=== PATIENT | female | born 1940 | race Caucasian/White ===

== ENCOUNTER 2016-09-03 13:02 | Inpatient (IN) | payer MEDICARE ==
[~2016-09-03] VITALS: Ht 157.5 cm; Wt 51.2 kg
[~2016-09-03 13:02] MED LIST: ALBUAER3 INH; AMLO10 PO; AMLO5 PO; BENT20TA PO; CEPH-460 PO; FLUT1INH7 INH; HYDR50TA15 PO; LEVO.125 PO; LORA-392 PO; METO10TA PO; MIRA33504 PO; OXYB5TAB10 PO; REST15CA PO
[2016-09-05] MEDS ORDERED: ceFAZolin 2 GM PREMIX 50 ML IV SCH (11:45)
[2016-09-05] MEDS ORDERED: INSULIN HUMAN REGULAR 1,000 UNITS/10 ML VIAL SQ PRN (11:45)
[2016-09-05] MEDS ORDERED: METOPROLOL TARTRATE 25 MG TAB PO PRN (11:45)
[2016-09-05] MEDS ORDERED: COLA100C3 PO (11:54)
[2016-09-05] MEDS ORDERED: LACTATED RINGER'S 1000 ML IV SCH (12:00)
[2016-09-05] MEDS ORDERED: METRONIDAZOLE 500 MG/100 ML IV ONE (12:00)
[2016-09-05] MEDS ORDERED: ePHEDrine/NS 25 MG/5 ML SYR IV ONE (12:00)
[2016-09-05] MEDS ORDERED: ONDANSETRON HCL 4 MG/2 ML VIAL IV PUSH ONE (12:00)
[2016-09-05] MEDS ORDERED: LACTATED RINGER'S 1000 ML INJ 1,000 ML IV ONE (12:00)
[2016-09-05] MEDS ORDERED: NORMOSOL R INJ 2,000 ML IV ONE (12:00)
[2016-09-05] MEDS ORDERED: HEPARIN SODIUM - SQ 10,000 UNITS/ML VIAL SQ SCH (12:00)
[2016-09-05] MEDS ORDERED: DEXT 5%-NACL 0.9% 1000 ML INJ 1,000 ML IV SCH (12:00)
[2016-09-05] MEDS ORDERED: ceFAZolin 2 GM/50 ML BAG IV ONE (12:00)
[2016-09-05] MEDS ORDERED: SODIUM CHLORID 0.9% 500 ML IV SCH (12:00)
[2016-09-05] MEDS ORDERED: PROPOFOL 200 MG/20 ML AMP IV ONE (12:00)
[2016-09-05] MEDS ORDERED: METRONIDAZOLE 500 MG/100 ML ISONTONIC SOLN IV SCH (12:00)
[2016-09-05 12:04] VITALS: BP 139/68; PULSE 76; RESP 16; TEMP 97.6; O2SAT 97
[2016-09-05] MEDS ORDERED: APREPITANT 40 MG CAP ONE (17:07)
[2016-09-05] MEDS ORDERED: FAMOTIDINE 20 MG/2 ML VIAL ONE (17:08)
[2016-09-05] MEDS ORDERED: ACETAMINOPHEN 1000 MG/100 ML VIAL IV ONE (17:21)
[2016-09-05] MEDS ORDERED: SUGAMMADEX SODIUM 200 MG/2 ML VIAL IV PUSH ONE ×2 (17:21)
[2016-09-05] MEDS ORDERED: ARTIFICIAL TEARS OPTH OINT 3.5 APPLIC/3.5 GM TUBO ONE (17:22)
--- NOTE | 2016-09-05 19:25 | PD.OP ---
Operative Report Date of Surgery: Sep 05, 2016 Preoperative Diagnosis: History of colon perforation Postoperative Diagnosis: Same Procedure: Cystoscopy and bilateral ureteral catheter placement Anesthesia: GILA Surgeon: Aurelio Ortiz Well Drill Operator Helper Cable Tool(s): None Resident Surgeon: None Operation and Findings: Request for made by Dr. Marti for placement of bilateral ureteral catheters during robotic colectomy. Patient is brought to the operating room and and identified by myself as Nancy Ny. She was placed in the dorsal lithotomy position, prepped and draped in usual sterile fashion, received preprocedure antibiotics and general endotracheal tube anesthesia was administered. 22 Spanish cystoscope was inserted in the bladder hamm cystoscopy did not reveal any abnormalities. Left ureteral orifice was visualized and a 5 Spanish open catheter was passed up the left ureter part of the way. Some resistance was encountered and an 0.35 sensor wire was passed through the open ended catheter and the catheter slid up easily over the wire. The right ureteral orifice was then identified and a 5 Spanish opening catheter slid up easily on the right side. 16 Mauricio was then inserted the bladder without difficulty and the catheters were secured to the Mauricio. She tolerated the procedure well. Aurelio Ortiz DO Sep 05, 2016 19:25
[2016-09-05] MEDS ORDERED: fentaNYL CITRATE 250 MCG/5 ML AMP ONE (21:03)
[2016-09-05] MEDS ORDERED: MIDAZOLAM HCL 2 MG/2 ML VIAL ONE (21:03)
[2016-09-06] VITALS (11 sets, daily range): BP systolic 122–147; BP diastolic 58–64; PULSE 73–90; RESP 11–30; TEMP 97.3–98.3; O2SAT 95–100
[2016-09-06] MEDS ORDERED: POTASSIUM CHLOR 40 MEQ PREMIX 100 ML IV PRN (00:30)
[2016-09-06] MEDS ORDERED: ACETAMINOPHEN 325 MG TAB PO PRN (00:30)
[2016-09-06] MEDS ORDERED: NALOXONE HCL 0.4 MG/ML AMP IV PRN (00:30)
[2016-09-06] MEDS ORDERED: ENALAPRILAT 2.5 MG/2 ML VIAL IV PRN (00:30)
[2016-09-06] MEDS ORDERED: Post-op Orders (for Pharmacy) MISC XX ONE (00:30)
[2016-09-06] MEDS: PCA - TOTAL MG MORPHINE DELIVERED PER SHIFT SCH ×4 (00:30→21:34)
[2016-09-06] MEDS ORDERED: BENZOCAINE 6 MG/MENTHOL 10 MG LOZENGE SUCK-ON PRN (00:30)
[2016-09-06] MEDS ORDERED: ACETAMINOPHEN/HYDROcodone 325 MG/5 MG TAB PO PRN (00:30)
[2016-09-06] MEDS ORDERED: ALBUTEROL SULFATE 90 MCG/ACT HFA 8 GM INHALER INH PRN (00:45)
[2016-09-06] MEDS ORDERED: *morphine SULFATE 8 MG/ML PERIprocedure ONLY ONE (00:48)
[2016-09-06] MEDS ORDERED: fentaNYL CITRATE 250 MCG/5 ML AMP ONE (00:52)
[2016-09-06] MEDS ORDERED: metroNIDAZOLE 500 MG INJ 100 ML IV SCH (01:00)
[2016-09-06 01:03] LABS: AUTOMATED NEUTROPHIL # 12.9 TH/MM3 (1.8-7.7); BASOPHIL % 0.4 % (0.0-2.0); EOSINOPHIL % 0.2 % (0.0-4.0); HEMATOCRIT 33.2 % (35.0-46.0); HEMO FLAGS DIFF FINAL; LYMPH % 2.7 % (9.0-44.0); LYMPHOCYTE # 0.4 TH/MM3 (1.0-4.8); MEAN CELL VOLUME 87.2 FL (80.0-100.0); MEAN CORPUSCULAR HEMOGLOBIN 28.8 PG (27.0-34.0); MONO % 4.1 % (0.0-8.0); NEUT % 92.6 % (16.0-70.0); PLATELET COUNT 263 TH/MM3 (150-450); RED BLOOD COUNT 3.81 MIL/MM3 (4.00-5.30); RED CELL DISTRIBUTION WIDTH 13.5 % (11.6-17.2); WHITE BLOOD COUNT 13.9 TH/MM3 (4.0-11.0)
[2016-09-06 01:18] LABS: BICARBONATE 23.7 MEQ/L (21.0-32.0)
[2016-09-06] MEDS: D5-NS + KCL 20 MEQ INJ 1,000 ML IV SCH ×4 (01:30→21:32)
[2016-09-06] MEDS: MORPHINE SULFATE 30 MG/30 ML PCA IV SCH (01:50)
[2016-09-06] MEDS: ONDANSETRON HCL 4 MG/2 ML VIAL IV PRN ×2 (02:20→08:44)
[2016-09-06] MEDS: metroNIDAZOLE 500 MG INJ 100 ML IV SCH ×3 (02:23→16:57)
[2016-09-06] MEDS: KETOROLAC TROMETHAMINE 30 MG/ML (IVP) VIAL IVP PRN (03:25)
[2016-09-06] MEDS: POTASSIUM CHLOR 20 MEQ PREMIX 100 ML IV PRN (03:25)
[2016-09-06] MEDS: SODIUM CHLORIDE 0.9% FLUSH 5 ML FLUSH IVF SCH ×2 (08:23→21:33)
[2016-09-06] MEDS: PANTOPRAZOLE SODIUM 40 MG VIAL IVP SCH (08:23)
[2016-09-06] MEDS: BREO ELLIPTA PO SCH (08:58)
[2016-09-06] MEDS: LEVOTHYROXINE SODIUM 125 MCG TAB PO SCH (09:00)
[2016-09-06] MEDS: POTASSIUM CHLOR 20 MEQ PREMIX 100 ML IV SCH ×3 (10:00→11:48)
[2016-09-06] MEDS: PROCHLORPERAZINE INJ 10 MG/2 ML VIAL IVS PRN ×2 (10:51→21:41)
--- NOTE | 2016-09-06 19:25 | EKG ---
Date Performed: 09/06/2016 Time Performed: 00:47:02 PTAGE: 76 years EKG: SINUS TACHYCARDIA ST DEVIATION AND MODERATE T-WAVE ABNORMALITY, CONSIDER ANTERIOR ISCHEMIA Since previous tracing, no significant change noted ABNORMAL ECG PREVIOUS TRACING : 06/06/2016 11.58 DOCTOR: Magnus Tan Interpretating Date/Time 09/06/2016 19:24:11
[2016-09-06] MEDS: HEPARIN SODIUM - SQ 10,000 UNITS/ML VIAL SQ SCH (21:33)
[2016-09-06] MEDS: amLODIPine BESYLATE 5 MG TAB PO SCH (21:34)
[2016-09-06] MEDS: ACETAMINOPHEN/HYDROcodone 325 MG/5 MG TAB PO PRN (21:35)
[2016-09-06] MEDS: diphenhydrAMINE HCL 50 MG/ML VIAL IV PRN (21:41)
--- NOTE | 2016-09-06 23:31 | RADRPT ---
EXAM DATE/TIME: 09/06/2016 21:07 [facility] COMPARISON: No previous studies available for comparison. INDICATIONS : Left leg pain. MEDICAL HISTORY : Hypercholesterolemia. Hypertension. Carcinoma, breast. Hashimotos thyroid disease. Transient ische clarke attack. Asthma. Hammer toe. Buinion. Enlarged right ovary. Anxiety. Anemia. Hernia. SURGICAL HISTORY : Left breast lumpectomy. Colostomy. Bilateral foot surgery. ENCOUNTER: Initial ACUITY: 1 day PAIN SCORE: 7/10 LOCATION: Left leg. TECHNIQUE: Venous ultrasound of the leg was performed from the inguinal ligament to the proximal calf. Real-tatiana e, color Doppler and spectral tracing, compression and augmentation techniques were used. FINDINGS: There is normal compressibility of the deep venous system from the inguinal region to the proximal ca lf. No echogenic clot is seen in the lumen of the common femoral, femoral, popliteal, and posterior tibial veins. There is a normal response of the venous system to proximal and distal augmentation an d respiration. CONCLUSION: Normal examination. Vasyl Taylor MD on September 06, 2016 at 23:29 Board Certified Radiologist. This report was verified electronically.
[2016-09-07] VITALS: BP 99/42; PULSE 75; RESP 18; TEMP 98.1; O2SAT 94
[2016-09-07] MEDS: ACETAMINOPHEN/HYDROcodone 325 MG/5 MG TAB PO PRN (04:17)
[2016-09-07] MEDS: diphenhydrAMINE HCL 50 MG/ML VIAL IV PRN ×3 (04:24→18:38)
[2016-09-07] MEDS: PCA - TOTAL MG MORPHINE DELIVERED PER SHIFT SCH ×3 (04:25→21:54)
[2016-09-07 07:07] LABS: AUTOMATED NEUTROPHIL # 4.7 TH/MM3 (1.8-7.7); BASOPHIL % 0.8 % (0.0-2.0); EOSINOPHIL # 0.3 TH/MM3 (0-0.4); EOSINOPHIL % 4.2 % (0.0-4.0); HEMATOCRIT 29.9 % (35.0-46.0); HEMO FLAGS DIFF FINAL; LYMPH % 9.7 % (9.0-44.0); LYMPHOCYTE # 0.6 TH/MM3 (1.0-4.8); MEAN CORPUSCULAR HEMOGLOBIN 29.3 PG (27.0-34.0); MEAN CORPUSCULAR HGB CONC 32.9 % (32.0-36.0); MONO % 7.5 % (0.0-8.0); NEUT % 77.8 % (16.0-70.0); PLATELET COUNT 154 TH/MM3 (150-450); RED BLOOD COUNT 3.36 MIL/MM3 (4.00-5.30); RED CELL DISTRIBUTION WIDTH 13.8 % (11.6-17.2); WHITE BLOOD COUNT 6.1 TH/MM3 (4.0-11.0)
[2016-09-07 07:35] LABS: BICARBONATE 26.6 MEQ/L (21.0-32.0); POTASSIUM 3.3 MEQ/L (3.5-5.1)
[2016-09-07] MEDS: BREO ELLIPTA PO SCH (07:42)
[2016-09-07] MEDS: HEPARIN SODIUM - SQ 10,000 UNITS/ML VIAL SQ SCH ×2 (07:43→20:00)
[2016-09-07] MEDS: LEVOTHYROXINE SODIUM 125 MCG TAB PO SCH (07:43)
[2016-09-07] MEDS: SODIUM CHLORIDE 0.9% FLUSH 5 ML FLUSH IVF SCH ×2 (07:55→21:00)
[2016-09-07] MEDS: PANTOPRAZOLE SODIUM 40 MG VIAL IVP SCH (07:56)
[2016-09-07 07:57] LABS: CALCIUM-PROTEIN CORRECTED 8.8 MG/DL (8.5-10.1)
[2016-09-07 08:00] VITALS: BP 120/58; PULSE 75; RESP 16; TEMP 97.5; O2SAT 95
[2016-09-07] MEDS ORDERED: SODIUM CHLORID 0.9% 500 ML INJ 500 ML IV ONE (10:30)
[2016-09-07] MEDS ORDERED: POTASSIUM CHLOR 40 MEQ PREMIX 100 ML IV ONE (10:30)
[2016-09-07] MEDS: POTASSIUM CHLOR 20 MEQ PREMIX 100 ML IV SCH ×2 (11:00→11:06)
--- NOTE | 2016-09-07 11:12 | RADRPT ---
EXAM DATE/TIME: 09/07/2016 10:46 [facility] COMPARISON: ABDOMEN FLAT & UPRIGHT, May 30, 2016, 11:42. INDICATIONS : Post op ileus. MEDICAL HISTORY : Hypercholesterolemia. Hypertension. Carcinoma, breast. Hashimotos thyroiddisease. Transient ischemic attack. Asthma. Hammer toe. Buinion. Enlarged right ovary. SURGICAL HISTORY : Left breast lumectomy. Colostomy. ENCOUNTER: Subsequent ACUITY: 2 days PAIN SCORE: 5/10 LOCATION: abdomen. FINDINGS: 4 supine views of the abdomen demonstrate diffuse mild gaseous distention of both the small bowel and colon. Air overlies the rectum. A bowel staple line overlies the inferior pelvis. There is trace reggie e air beneath the right hemidiaphragm. Air is present along the abdominal wall bilaterally in the sub cutaneous tissues. No organomegaly is identified and no acute osseous abnormality is seen. Lung bases are clear. CONCLUSION: 1. Mild diffuse gaseous distention of the small bowel and colon without a transition point appreciate d. Findings are suggestive of ileus. 2. Trace free air beneath the right hemidiaphragm and subcutaneous air along the abdominal wall bilat erally. If the patient is post recent surgery this is likely a normal finding. Vasyl Freitas MD on September 07, 2016 at 11:09 Board Certified Radiologist. This report was verified electronically.
[2016-09-07] MEDS: KETOROLAC TROMETHAMINE 30 MG/ML (IVP) VIAL IVP PRN ×2 (11:13→18:38)
[2016-09-07 12:00] VITALS: BP 148/70; PULSE 77; RESP 17; TEMP 98.4; O2SAT 97
[2016-09-07] MEDS: POTASSIUM CHLORIDE 25 MEQ EFFERVESCENT TAB PO SCH ×2 (13:18→15:20)
[2016-09-07] MEDS: FUROSEMIDE 40 MG/4 ML VIAL IV SCH (15:15)
[2016-09-07] MEDS: D5-NS + KCL 20 MEQ INJ 1,000 ML IV SCH ×2 (15:17→18:42)
[2016-09-07 16:00] VITALS: BP_SYST 160; BP_SYST 177; BP_DIAS 72; BP_DIAS 73; PULSE 76; RESP 17; TEMP 97.9; O2SAT 96
--- NOTE | 2016-09-07 17:47 | MP ---
cc: BRENDAN BURROUGHS M.D. DATE OF SURGERY: 09/05/2016. PREOPERATIVE DIAGNOSIS: 1. Previous stercoral ulcer with perforation. 2. Adnexal mass. POSTOPERATIVE DIAGNOSIS: 1. Previous stercoral ulcer with perforation. 2. Adnexal mass. 3. Adhesions. SURGEON: Brendan Burroughs M.D. GRAIN LOADER: Boyd. OPERATIVE PROCEDURE PERFORMED: Figueroa Nix procedures. 1. Robotic / laparoscopic extensive lysis of adhesions. 2. Robotic resection with re-anastomosis of Stuart's pouch. 3. Robotic appendectomy 4. Robotic bilateral salpingo-oophorectomy, (please see Dr. Pierson' notes for details). ESTIMATED BLOOD LOSS: 50 cc. OPERATIVE INDICATIONS: The patient is a 76-year-old female who is several months out from an emergency resection with colostomy and Stuart's pouch for a perforated stercoral ulcer. At the time of that surgery, she was noted to have an adnexal mass, which was addressed during this surgery. OPERATIVE FINDINGS: A combination of both filmy and significant adhesions throughout the peritoneal cavity of both small bowel and colon. Otherwise the bowel appeared healthy. The right adnexa was enlarged and firm. The left adnexa appeared virtually normal. Please see Dr. Pierson' as notes for details. DESCRIPTION OF THE PROCEDURE IN DETAIL: The patient was brought to the operating and placed in the supine position. After induction of general anesthesia, the patient was placed in Edgar stirrups and all bony prominences were carefully padded. The skin of the anterior abdominal wall, as well as the perineal area, was then prepped and draped in the usual sterile fashion. Dr. Ortiz then came in and performed cystoscopy with placement of bilateral ureteral catheters, please see his operative note for details. A site was then chosen for the initial trocar. I decided to try just under the right costal margin with our assist port, due to my worries about significant adhesions. A #5 trocar was attempted to be placed at this location but indeed I did get into adhesions and so did not insufflate the abdomen at this port. Another attempt was made to place a port in the right lower quadrant, a #5 port at the site of our #1 port, but again, we got into adhesions. At this point, I elected to proceed with taking down the stoma and taking down adhesions through the stoma site enough to get a port in. An incision was made circumferentially around the stoma sharply and, using electrocautery, dissection was carried down to the fascia circumferentially, noting a small parastomal hernia. The fascia was cleared of the bowel circumferentially and the bowel was gently grasped and pulled out of the stoma aperture. A TX-30 stapler was placed across the bowel at this level to prevent leakage during the remainder of the surgery, and the bowel was prolapsed back into the peritoneal cavity. The posterior fascia was palpably and gently swept free of adhesions to the length of my finger and the right lower quadrant port I could palpate and make sure that it was well within the abdominal cavity for CO2 insufflation. The posterior fascia at the stomal site was closed in a running fashion using #1 PDS, and the anterior fascia was closed in a running fashion using #1 PDS. An OpSite was placed across the wound and CO2 insufflation was begun through the right lower quadrant port. Eventually we were able to place the right lower quadrant port. We placed the camera port just above the umbilicus, with a 10/12. We replaced the #5 assist port that we had started in the right upper quadrant with a #[address] Jesi port for Dr. Pierson' needs and we placed the #2 port which was also an 8 da Jesi port in the left midclavicular line, in line with the umbilicus. At this point, we slowly and painstakingly dissected free dense and extensive adhesions from the peritoneal cavity, although some of them were fairly light and filmy, they were pretty much everywhere. Eventually we were able to free up the ovaries. Dr. Pierson then came in and performed a right oophorectomy and the specimen was sent for pathology. While the remainder of the case was performed, pathology came back suspicious for a metastatic breast cancer and he felt it was appropriate and removed the left ovary and tube as well. Attention was then turned to the rectum, which was grasped and dissection was continued posteriorly down to level of the mid rectum and up around laterally to the right and the left. Eventually we were able to peel the rectum off the posterior uterus and vagina until we had full mobility of the rectum. A sponge stick was then placed in the rectum. A site was chosen for division of the rectum, just at the junction between the middle third and proximal third. The superior hemorrhoidal vessels were then dissected free circumferentially and then divided with an [place] [employer] stapler. The mesentery at the level of the proposed rectal resection was divided using the harmonic scalpel and at that point, the 29 EEA stapler was advanced through the anus and up to the rectal stump. However, we had managed to staple it at an angle so there was quite a large dog ear. With this, we elected to dissect back along the dog ear to get a better staple line and then a second load of the [place] endostapler was advanced across the staple line. At the beginning of the case, we had noted that the appendix was adherent to the posterior peritoneum. During the dissection of the appendix away from the posterior peritoneum and the left ovary and tube, it had gotten quite beat up so I did plan to take out the appendix at this point. The mesentery of the appendix was divided using electrocautery and a reload of the [place] End[employer] stapler was placed across the cecum at the base of the appendix. This was closed, held for 30 seconds, fired and removed. The specimen was removed. Attention was then turned to the descending colon which was dissected free, and the stoma came down nicely to the pelvis without too much problem. We did not have to do a large amount of dissection but I did dissect some of the lateral peritoneal attachments. There was noted to be some small bowel that seemed to be somewhat adherent to the anterior surface of the descending colon but I elected to take care of that through the open incision. The robot was then undocked and the previous incision at the stoma site was then opened. The specimen was retrieved and sent for pathology. The proximal stapled end of the bowel was then grasped and pulled out through the incision and we were at that point able to gently dissect free the other loop of small bowel that had been adherent to the anterior surface of the descending colon. This allowed even greater length and the bowel came down very nicely into the pelvis without any tension. The bowel just proximal to the previous stoma was cleared of its mesentery using a combination of #0 Vicryl ties and electrocautery, and the pursestring stapling device was placed across the bowel at this level. The distal staple line was then amputated and the anvil from the 29 EEA stapler was placed into the cut end of bowel. The previously placed pursestring suture was then secured. The bowel was then prolapsed back into the peritoneal cavity. The posterior fascia at the stoma site was closed in a running fashion using #1 PDS and the anterior fascia was closed in a running fashion using #1 PDS. The wound was then occluded with a Tegaderm and CO2 insufflation was resumed. The laparoscope was placed back into the peritoneal cavity. The 29 EEA stapler was advanced through the anus and up to the rectal stump. The spike was advanced posterior to the staple line, slightly off to one side, but lay nicely without twisting or undue tension. The proximal bowel with the anvil in place was then brought down and the spike was then into the anvil, being careful that the bowel was not twisted. The stapler was then closed, held for a 30 seconds, fired, and removed. The anastomosis appeared pink and healthy circumferentially and both anastomotic rings appeared to be complete. A small amount of warm normal saline was placed in the pelvis and the proximal bowel was occluded with digital pressure. Air was insufflated into the rectum until gentle tension was noted on the anastomosis. No sign of any leakage was noted. The anastomosis lay in a nice orientation without undue tension and all dissection beds appeared without significant bleeding. The 10/12 trocar sites to the right lower quadrant and the umbilical area were then closed using the crossbow closure device and the #0 Vicryl suture. These were placed but not tied until the CO2 was removed from the peritoneal cavity. The CO2 was then removed and all trocars were removed. The #0 Vicryl sutures were secured. The wounds were copiously irrigated with warm normal saline. The skin at the stoma site was then closed in a running subcuticular fashion using 3-0 Vicryl and the wounds at the trocar sites were closed in interrupted subcuticular fashion using 3-0 Vicryl. Steri-Strips and sterile dressings were applied. The right ureteral stent was removed. All sponge, needle and instrument counts were correct and the patient was returned to the post anesthesia care in stable condition. MD ANTONIA Monge/MINDY /12:22 AM /5:22 PM [facility]
[2016-09-07 20:00] VITALS: BP 148/70; PULSE 80; RESP 20; TEMP 98.5; O2SAT 97
[2016-09-07] MEDS: amLODIPine BESYLATE 5 MG TAB PO SCH (21:00)
[2016-09-08] MEDS: D5-NS + KCL 20 MEQ INJ 1,000 ML IV SCH ×2 (00:57→08:55)
[2016-09-08] MEDS: KETOROLAC TROMETHAMINE 30 MG/ML (IVP) VIAL IVP PRN (00:58)
[2016-09-08] MEDS: diphenhydrAMINE HCL 50 MG/ML VIAL IV PRN ×2 (00:59→12:29)
[2016-09-08] MEDS: FUROSEMIDE 40 MG/4 ML VIAL IV SCH ×2 (02:34→13:36)
[2016-09-08 02:55] VITALS: BP 134/62; PULSE 84; RESP 18; TEMP 98.2; O2SAT 96
[2016-09-08] MEDS: PCA - TOTAL MG MORPHINE DELIVERED PER SHIFT SCH ×2 (03:46→20:44)
[2016-09-08] MEDS: MORPHINE SULFATE 30 MG/30 ML PCA IV SCH (03:53)
[2016-09-08 06:24] LABS: AUTOMATED NEUTROPHIL # 4.5 TH/MM3 (1.8-7.7); BASOPHIL % 0.4 % (0.0-2.0); EOSINOPHIL # 0.4 TH/MM3 (0-0.4); HEMATOCRIT 32.3 % (35.0-46.0); HEMO FLAGS DIFF FINAL; LYMPH % 11.5 % (9.0-44.0); LYMPHOCYTE # 0.7 TH/MM3 (1.0-4.8); MEAN CELL VOLUME 87.2 FL (80.0-100.0); MEAN CORPUSCULAR HEMOGLOBIN 29.2 PG (27.0-34.0); MEAN CORPUSCULAR HGB CONC 33.5 % (32.0-36.0); MONO % 6.1 % (0.0-8.0); PLATELET COUNT 168 TH/MM3 (150-450); RED CELL DISTRIBUTION WIDTH 13.6 % (11.6-17.2)
[2016-09-08 06:45] LABS: BICARBONATE 28.1 MEQ/L (21.0-32.0); POTASSIUM 3.2 MEQ/L (3.5-5.1)
[2016-09-08 08:00] VITALS: BP 123/60; PULSE 68; RESP 14; TEMP 96.5; O2SAT 97
[2016-09-08] MEDS: ACETAMINOPHEN/HYDROcodone 325 MG/5 MG TAB PO PRN (08:54)
[2016-09-08] MEDS: SODIUM CHLORIDE 0.9% FLUSH 5 ML FLUSH IVF SCH ×2 (08:55→20:45)
[2016-09-08] MEDS: PANTOPRAZOLE SODIUM 40 MG VIAL IVP SCH (08:55)
[2016-09-08] MEDS: HEPARIN SODIUM - SQ 10,000 UNITS/ML VIAL SQ SCH ×2 (08:55→20:45)
[2016-09-08] MEDS: LEVOTHYROXINE SODIUM 125 MCG TAB PO SCH (09:00)
[2016-09-08] MEDS: BREO ELLIPTA PO SCH (09:00)
--- NOTE | 2016-09-08 09:41 | MP ---
cc: BRENDAN BURROUGHS M.D., KELLY L. MD THOMAS, SHAWN WAYNE PALMER, PATRICIA DATE OF SURGERY: 09/05/2016 PREOPERATIVE DIAGNOSIS Right ovarian mass. POSTOPERATIVE DIAGNOSIS Tumor within the right ovary. PROCEDURE Robotic-assisted laparoscopic bilateral salpingo-oophorectomy, lysis of adhesions. SURGEON Theodora Pierson MD COLLECTION SYSTEMS ADMINISTRATOR [employer] administrative assistant. ANESTHESIA General endotracheal anesthesia. ESTIMATED BLOOD LOSS 30 ccs. HISTORY This is a 76-year-old female who is under the care of Dr. Telma Burroughs, who originally presented with perforated ulcer requiring sigmoid resection and descending colostomy. At the time of that surgery, right ovary appeared prominent and unusual in appearance, for which RADIAL ROUTER OPERATOR oncology was consulted. CAT scan confirmed prominence of the right ovary. She was seen in RADIAL ROUTER OPERATOR oncology office. She had a preference to be as conservative as possible. I explained that the best way to clarify abnormality would be to likely remove the abnormal tube and ovary, possibly both, and we recommended removal of both tubes and ovaries. She was reluctant to having both tubes and ovaries removed. She was reluctant to hysterectomy unless there was an obvious cancer definitely arising from any of those organs. She was counseled regarding her menopausal status and the negligible hormone production of postmenopausal ovaries and she is seen again in the preop holding area where again she wants a conservative approach. She asked if the right ovary could be biopsied and removed only if cancer is determined and I explained that sometimes the mass may be partially benign, partially malignant such that a biopsy may not accurately represent it and I recommended removal. She understands that she is the ultimate decision maker and she can decline having anything removed but given the abnormality and our previous findings, Dr. Burroughs' findings and CAT scan and our previous conversation, we recommend removing what appears abnormal for a thorough assessment and evaluation. She agrees, she still does not want a hysterectomy and would prefer to leave the other ovary in situ unless some type of tumor is detected on the abnormal-appearing ovary. FINDINGS The right ovary is enlarged approximately 5 cm, slightly lobular surface. There are adhesions from a prior inflammatory condition. The fallopian tube is slightly dilated. The left tube and ovary grossly appear normal. There is some surrounding inflammatory adhesions, many of which have already been taken down by Dr. Burroughs, who has initiated the laparoscopic robotic case to get started with the colorectal objectives. There is no overt peritoneal implants. The uterus grossly appears normal. There is no nodularity. No omental tumor. No mesenteric or bowel implants, just diffuse post inflammatory changes. Frozen section analysis, reviewing the slides with Dr. Anita Pelayo, shows tumor within the right ovary, it appears to be likely metastatic and has histologic features suggestive of metastatic breast cancer. Nancy Ny does have a remote history of breast cancer but further evaluation is needed as this is frozen section interpretation. It does not appear to be a tumor that arises from either the uterus or the ovaries primarily. PROCEDURE The patient has already been asleep, prepped, positioned and laparoscopic entry and the robotic system is docked and Dr. Burroughs has initiated dissection. Ureteral stents have been placed. I sat down at the surgeon's console when I was contacted and Dr. Burroughs said that they were ready for me. Extended a right retroperitoneal dissection lateral and parallel through the gonadal vessels. Adhesions were taken down with sharp dissection. The right ureter was identified. The right infundibulopelvic ligament was isolated. The intervening peritoneum was opened. The infundibulopelvic ligament was isolated to the level of the pelvic brim where it was cauterized and transected. Sharp dissection was used to free adhesions around the right ovary which was adherent to the right pelvic sidewall and cul-de-sac and dissection was continued until the right utero-ovarian ligament was isolated. It was isolated, cauterized and transected. The right tube and ovary were placed in an EndoCatch bag and delivered through the 12-mm cannula. I left the surgeon's console, Dr. Burroughs resumed her operation and went to pathology for the frozen section analysis. I reviewed the slides directly with Dr. Pelayo with findings as described above showing malignancy, although favoring probably a metastatic breast, additional information would be needed on permanent histopathologic analysis. Given that additional tissue may clarify the diagnosis and given that there is tumor confirmed in the right ovary even though the left ovary appears normal, there is a reasonably high probability it has tumor in it. So in keeping with our preoperative agreement decision was made to recommend removing the left tube and ovary but as it does not appear to be primarily a gynecologic tumor, the uterus would be left in situ. I returned to the operating room and again took my place at the surgeon's console where the left retroperitoneal dissection was carried out lateral and parallel to the left gonadal vessels. The left ureter was identified. The left infundibulopelvic ligament was isolated to the level of the pelvic brim where it was cauterized and transected. Dissection was continued to isolate the left utero-ovarian ligament. The left utero-ovarian ligament was then isolated, cauterized and transected, removing the left tube and ovary which was brought out with an EndoCatch bag through the 12-mm cannula. The case was turned back over to Dr. Telma Burroughs and final histopathologic analysis of the tubes and ovaries is forthcoming. MD ANTWAN Greer/JOLANTA /7:49 AM /9:16 AM
[2016-09-08 12:00] VITALS: BP 171/72; PULSE 86; RESP 15; TEMP 95.7; O2SAT 98
[2016-09-08] MEDS: PROCHLORPERAZINE INJ 10 MG/2 ML VIAL IVS PRN (12:19)
[2016-09-08] MEDS: POTASSIUM BICARBONATE 25 MEQ EFFERVESCENT TAB PO SCH (15:00)
--- NOTE | 2016-09-08 15:06 | HHI.PR ---
Subjective Remarks POD#3 s/p robotic VANITA/BSO/Resection reanatomosis Hernandez's 'Weak", minimal nausea Objective Vital Signs Date Time Temp Pulse Resp B/P Pulse Ox O2 Delivery O2 Flow Rate FiO2 09/08/16 12:00 95.7 86 15 171/72 98 09/08/16 08:00 96.5 68 14 123/60 97 09/08/16 03:53 12 09/08/16 03:46 12 09/08/16 02:55 98.2 84 18 134/62 96 09/07/16 21:54 12 09/07/16 20:00 98.5 80 20 148/70 97 09/07/16 16:00 97.9 76 17 177/73 96 160/72 I/O 09/07/16 09/07/16 09/07/16 09/08/16 09/08/16 09/08/16 07:00 15:00 23:00 07:00 15:00 23:00 Intake Total 646 ml 618 ml 1186 ml 806 ml 0 ml Output Total 500 ml 900 ml 2150 ml 2500 ml 1450 ml Balance 146 ml -282 ml -964 ml -1694 ml -1450 ml Intake Oral 0 ml 0 ml 0 ml 0 ml 0 ml IV Total 646 ml 618 ml 1186 ml 806 ml Output Urine Total 500 ml 900 ml 2150 ml 2500 ml 1450 ml # Bowel Movements 0 0 Result Diagram: 09/08/16 0527 09/08/16 05 Objective Remarks Abdomen soft, nondistended, tender Wounds clean Assessment and Plan Assessment and Plan Mobilize Clears as marion Decrease IVF D/C Lizett Suggs MD Sep 08, 2016 15:06
[2016-09-08 16:00] VITALS: BP 140/63; PULSE 84; RESP 12; TEMP 95.8; O2SAT 95
[2016-09-08 20:00] VITALS: BP 141/62; PULSE 70; RESP 20; TEMP 97; O2SAT 96
[2016-09-08] MEDS: amLODIPine BESYLATE 5 MG TAB PO SCH (20:45)
[2016-09-09] VITALS: BP 117/51; PULSE 77; RESP 21; TEMP 96.8; O2SAT 97
[2016-09-09] MEDS: ACETAMINOPHEN/HYDROcodone 325 MG/5 MG TAB PO PRN ×4 (00:07→23:59)
[2016-09-09] MEDS: diphenhydrAMINE HCL 50 MG/ML VIAL IV PRN ×3 (00:09→21:29)
[2016-09-09] MEDS: FUROSEMIDE 40 MG/4 ML VIAL IV SCH ×2 (02:47→14:52)
[2016-09-09] MEDS: D5-NS + KCL 20 MEQ INJ 1,000 ML IV SCH ×2 (04:47→21:29)
[2016-09-09] MEDS: PCA - TOTAL MG MORPHINE DELIVERED PER SHIFT SCH (04:50)
[2016-09-09 06:09] LABS: AUTOMATED NEUTROPHIL # 3.3 TH/MM3 (1.8-7.7); BASOPHIL % 0.6 % (0.0-2.0); EOSINOPHIL # 0.5 TH/MM3 (0-0.4); EOSINOPHIL % 10.6 % (0.0-4.0); HEMATOCRIT 30.7 % (35.0-46.0); HEMO FLAGS DIFF FINAL; LYMPH % 14.3 % (9.0-44.0); LYMPHOCYTE # 0.7 TH/MM3 (1.0-4.8); MEAN CELL VOLUME 87.4 FL (80.0-100.0); MEAN CORPUSCULAR HEMOGLOBIN 29.2 PG (27.0-34.0); MEAN CORPUSCULAR HGB CONC 33.4 % (32.0-36.0); MONO % 7.3 % (0.0-8.0); NEUT % 67.2 % (16.0-70.0); PLATELET COUNT 166 TH/MM3 (150-450); RED BLOOD COUNT 3.51 MIL/MM3 (4.00-5.30); RED CELL DISTRIBUTION WIDTH 13.4 % (11.6-17.2); WHITE BLOOD COUNT 4.9 TH/MM3 (4.0-11.0)
[2016-09-09 06:40] LABS: POTASSIUM 3.4 MEQ/L (3.5-5.1)
[2016-09-09 08:00] VITALS: BP 152/66; PULSE 79; RESP 18; TEMP 96.1; O2SAT 97
[2016-09-09] MEDS: POTASSIUM BICARBONATE 25 MEQ EFFERVESCENT TAB PO SCH (08:02)
[2016-09-09] MEDS: LEVOTHYROXINE SODIUM 125 MCG TAB PO SCH (08:02)
[2016-09-09] MEDS: PANTOPRAZOLE SODIUM 40 MG VIAL IVP SCH (08:02)
[2016-09-09] MEDS: HEPARIN SODIUM - SQ 10,000 UNITS/ML VIAL SQ SCH ×2 (08:02→21:18)
[2016-09-09] MEDS: SODIUM CHLORIDE 0.9% FLUSH 5 ML FLUSH IVF SCH ×2 (08:03→21:00)
[2016-09-09] MEDS: POTASSIUM CHLOR 20 MEQ PREMIX 100 ML IV PRN (08:03)
[2016-09-09] MEDS: BREO ELLIPTA PO SCH (08:03)
[2016-09-09] MEDS: MORPHINE SULFATE 30 MG/30 ML PCA IV SCH (11:01)
[2016-09-09 12:00] VITALS: BP 174/74; PULSE 86; RESP 18; TEMP 98.1; O2SAT 97
[2016-09-09] MEDS: ENALAPRILAT 1.25 MG/ML VIAL IV PRN (12:32)
[2016-09-09 16:00] VITALS: BP 148/66; PULSE 81; RESP 19; TEMP 96; O2SAT 98
--- NOTE | 2016-09-09 18:36 | HHI.PR ---
Subjective Remarks POD#4 s/p robotic VANITA/BSO/Resection reanatomosis Hernandez's Feels better Objective Vital Signs Date Time Temp Pulse Resp B/P Pulse Ox O2 Delivery O2 Flow Rate FiO2 09/09/16 16:00 96.0 81 19 148/66 98 09/09/16 13:33 17 09/09/16 12:00 98.1 86 18 174/74 97 09/09/16 11:06 18 09/09/16 11:01 18 09/09/16 08:00 96.1 79 18 152/66 97 09/09/16 04:50 14 09/09/16 00:00 96.8 77 21 117/51 97 09/08/16 20:44 14 09/08/16 20:00 97.0 70 20 141/62 96 I/O 09/08/16 09/08/16 09/08/16 09/09/16 09/09/16 09/09/16 07:00 15:00 23:00 07:00 15:00 23:00 Intake Total 806 ml 688 ml 774 ml 240 ml 1327 ml Output Total 2500 ml 1450 ml 600 ml 100 ml Balance -1694 ml -762 ml 174 ml 140 ml 1327 ml Intake Oral 0 ml 0 ml 240 ml 240 ml 400 ml IV Total 806 ml 688 ml 534 ml 927 ml Output Urine Total 2500 ml 1450 ml 600 ml 100 ml # Voids 2 2 5 # Bowel Movements 0 0 0 0 Result Diagram: 09/09/16 0519 09/09/16 0519 Objective Remarks Abdomen soft, nondistended, tender Wounds clean Assessment and Plan Assessment and Plan Mobilize Advance diet d/c estate planning attorney decrease fluids Lizett Marti MD Sep 09, 2016 18:36
[2016-09-09 20:00] VITALS: BP 132/60; PULSE 75; RESP 16; TEMP 97.5; O2SAT 98
[2016-09-09] MEDS: amLODIPine BESYLATE 5 MG TAB PO SCH (21:18)
[2016-09-09] MEDS: SODIUM CHLORIDE 0.9% FLUSH 5 ML FLUSH IVF PRN (21:29)
[2016-09-10] VITALS: BP 176/77; PULSE 86; RESP 16; TEMP 96.6; O2SAT 97
[2016-09-10] MEDS: FUROSEMIDE 40 MG/4 ML VIAL IV SCH ×2 (04:25→14:53)
[2016-09-10] MEDS: ACETAMINOPHEN/HYDROcodone 325 MG/5 MG TAB PO PRN (05:37)
[2016-09-10 07:20] VITALS: BP 165/72; PULSE 84; RESP 16; TEMP 98.9
[2016-09-10] MEDS: PANTOPRAZOLE SODIUM 40 MG VIAL IVP SCH (07:44)
[2016-09-10] MEDS: HEPARIN SODIUM - SQ 10,000 UNITS/ML VIAL SQ SCH ×2 (07:44→20:43)
[2016-09-10] MEDS: POTASSIUM BICARBONATE 25 MEQ EFFERVESCENT TAB PO SCH (07:45)
[2016-09-10] MEDS: LEVOTHYROXINE SODIUM 125 MCG TAB PO SCH (07:45)
[2016-09-10] MEDS: BREO ELLIPTA PO SCH (07:45)
[2016-09-10] MEDS: SODIUM CHLORIDE 0.9% FLUSH 5 ML FLUSH IVF SCH ×2 (07:45→20:43)
[2016-09-10] MEDS: diphenhydrAMINE HCL 50 MG/ML VIAL IV PRN ×2 (07:55→20:45)
[2016-09-10] MEDS ORDERED: CLOTRIMAZOLE 1% CREAM 15 GM TOPICAL PRN (11:30)
[2016-09-10] MEDS ORDERED: oxyCODONE/ACETAMINOPHEN 5 MG/325 MG TAB PO PRN (11:30)
[2016-09-10] MEDS ORDERED: HYDROCORTISONE 1% CREAM 30 GM TOP PRN (11:30)
[2016-09-10 11:40] VITALS: BP 175/81; PULSE 81; RESP 12; TEMP 97.9; O2SAT 99
[2016-09-10] MEDS ORDERED: FUROSEMIDE 20 MG/2 ML VIAL IV PUSH SCH (11:45)
[2016-09-10] MEDS: ENALAPRILAT 1.25 MG/ML VIAL IV PRN ×2 (11:55→17:51)
[2016-09-10] MEDS: oxyCODONE/ACETAMINOPHEN 5 MG/325 MG TAB PO PRN ×2 (11:55→17:51)
[2016-09-10 16:00] VITALS: BP 167/80; PULSE 87; RESP 17; TEMP 98.6; O2SAT 98
[2016-09-10 20:00] VITALS: BP 143/73; PULSE 83; RESP 16; TEMP 97.9; O2SAT 96
[2016-09-10] MEDS: amLODIPine BESYLATE 5 MG TAB PO SCH (20:43)
[2016-09-10] MEDS: D5-NS + KCL 20 MEQ INJ 1,000 ML IV SCH (20:44)
--- NOTE | 2016-09-10 22:26 | HHI.PR ---
Subjective Remarks C/R Surg POD # 5 afebrile, VSS UO good some appet Objective - Vital Signs Date Time Temp Pulse Resp B/P Pulse Ox O2 Delivery O2 Flow Rate FiO2 09/10/16 20:00 97.9 83 16 143/73 96 09/07/16 07:43 Room Air 09/06/16 09:00 21 Result Diagram: 09/09/16 0519 09/09/16 0519 Objective Remarks PE alert Abd - softly round, mild tympany A/P Assessment and Plan Imp: slow improvement, OOB try PO Renzo Pantoja MD Sep 10, 2016 22:26
[2016-09-11] VITALS: BP 133/76; PULSE 81; RESP 16; TEMP 98.8; O2SAT 96
[2016-09-11] MEDS: FUROSEMIDE 40 MG/4 ML VIAL IV SCH ×2 (02:36→13:36)
[2016-09-11 08:00] VITALS: BP 120/62; PULSE 83; RESP 19; TEMP 99; O2SAT 95
[2016-09-11] MEDS: LEVOTHYROXINE SODIUM 125 MCG TAB PO SCH (08:09)
[2016-09-11] MEDS: POTASSIUM BICARBONATE 25 MEQ EFFERVESCENT TAB PO SCH (08:09)
[2016-09-11] MEDS: HEPARIN SODIUM - SQ 10,000 UNITS/ML VIAL SQ SCH ×2 (08:09→20:19)
[2016-09-11] MEDS: diphenhydrAMINE HCL 50 MG/ML VIAL IV PRN ×3 (08:10→23:24)
[2016-09-11] MEDS: oxyCODONE/ACETAMINOPHEN 5 MG/325 MG TAB PO PRN ×4 (08:10→23:08)
[2016-09-11] MEDS: SODIUM CHLORIDE 0.9% FLUSH 5 ML FLUSH IVF SCH ×2 (08:11→20:19)
[2016-09-11] MEDS: PANTOPRAZOLE SODIUM 40 MG VIAL IVP SCH (08:11)
[2016-09-11] MEDS: BREO ELLIPTA PO SCH (08:12)
[2016-09-11 12:00] VITALS: BP 117/59; PULSE 78; RESP 18; TEMP 98.7; O2SAT 96
--- NOTE | 2016-09-11 13:19 | HHI.PR ---
Subjective Remarks C/R Surg POD # 6 afebrile, VSS UO good some appet +BM Objective - Vital Signs Date Time Temp Pulse Resp B/P Pulse Ox O2 Delivery O2 Flow Rate FiO2 09/11/16 08:00 99.0 83 19 120/62 95 09/07/16 07:43 Room Air Result Diagram: 09/09/16 0519 09/09/16518 Objective Remarks PE alert Abd - softly round, mild tympany, better averall A/P Assessment and Plan Imp: slow improvement, OOB try PO decr IVF dc plans Renzo Pantoja MD Sep 11, 2016 13:19
[2016-09-11 16:00] VITALS: BP 135/75; PULSE 78; RESP 19; TEMP 98.7; O2SAT 100
[2016-09-11 20:00] VITALS: BP 136/84; PULSE 76; RESP 20; TEMP 98.1; O2SAT 98
[2016-09-11] MEDS: amLODIPine BESYLATE 5 MG TAB PO SCH (20:20)
[2016-09-12] VITALS: BP_SYST 105; BP_SYST 142; BP_DIAS 58; BP_DIAS 65; PULSE 78; PULSE 84; RESP 20; TEMP 97.8; TEMP 98.2; O2SAT 95; O2SAT 96
[2016-09-12] MEDS: FUROSEMIDE 40 MG/4 ML VIAL IV SCH ×2 (03:46→16:15)
[2016-09-12 08:00] VITALS: BP 140/64; PULSE 85; RESP 20; TEMP 97.7; O2SAT 96
[2016-09-12] MEDS: oxyCODONE/ACETAMINOPHEN 5 MG/325 MG TAB PO PRN ×4 (08:26→21:29)
[2016-09-12] MEDS: LEVOTHYROXINE SODIUM 125 MCG TAB PO SCH (08:27)
[2016-09-12] MEDS: POTASSIUM BICARBONATE 25 MEQ EFFERVESCENT TAB PO SCH (08:28)
[2016-09-12] MEDS: BREO ELLIPTA PO SCH (08:28)
[2016-09-12] MEDS: HEPARIN SODIUM - SQ 10,000 UNITS/ML VIAL SQ SCH ×2 (08:29→19:57)
[2016-09-12] MEDS: SODIUM CHLORIDE 0.9% FLUSH 5 ML FLUSH IVF SCH ×2 (08:29→19:56)
[2016-09-12] MEDS: PANTOPRAZOLE SODIUM 40 MG VIAL IVP SCH (08:29)
[2016-09-12] MEDS: diphenhydrAMINE HCL 50 MG/ML VIAL IV PRN ×2 (09:54→18:28)
[2016-09-12 12:00] VITALS: BP 143/69; PULSE 79; RESP 19; TEMP 97.8; O2SAT 97
[2016-09-12 16:00] VITALS: BP 134/66; PULSE 72; RESP 19; TEMP 97.7; O2SAT 98
[2016-09-12] MEDS ORDERED: DIPH50IN2 IV (18:25)
[2016-09-12] MEDS ORDERED: OXYC1TAB63 PO (18:25)
[2016-09-12] MEDS: SODIUM CHLORIDE 0.9% FLUSH 5 ML FLUSH IVF PRN (18:28)
[2016-09-12] MEDS: amLODIPine BESYLATE 5 MG TAB PO SCH (19:57)
[2016-09-12 20:00] VITALS: BP 168/87; PULSE 80; RESP 20; TEMP 96.7; O2SAT 100
--- NOTE | 2016-09-12 22:14 | HHI.PR ---
Subjective Remarks C/R Surg POD # 7 afebrile, VSS UO good some appet +flatus Objective - Vital Signs Date Time Temp Pulse Resp B/P Pulse Ox O2 Delivery O2 Flow Rate FiO2 09/12/16 17:43 18 09/12/16 16:00 97.7 72 134/66 98 Result Diagram: 09/09/16 0519 09/09/16 0519 Objective Remarks PE alert Abd - softly round, mild tympany, wound slightly red A/P Assessment and Plan Imp: slow improvement, OOB try PO - adv decr IVF dc plans Renzo Pantoja MD Sep 12, 2016 22:14
[2016-09-13] VITALS: BP 177/97; PULSE 82; RESP 20; TEMP 97.2; O2SAT 98
[2016-09-13] MEDS: diphenhydrAMINE HCL 50 MG/ML VIAL IV PRN ×3 (01:02→15:59)
[2016-09-13] MEDS: oxyCODONE/ACETAMINOPHEN 5 MG/325 MG TAB PO PRN ×5 (01:03→20:26)
[2016-09-13] MEDS: FUROSEMIDE 40 MG/4 ML VIAL IV SCH ×2 (01:03→16:00)
[2016-09-13] MEDS: LEVOTHYROXINE SODIUM 125 MCG TAB PO SCH (07:34)
[2016-09-13] MEDS: SODIUM CHLORIDE 0.9% FLUSH 5 ML FLUSH IVF SCH ×2 (07:39→20:27)
[2016-09-13] MEDS: HEPARIN SODIUM - SQ 10,000 UNITS/ML VIAL SQ SCH ×2 (07:40→20:26)
[2016-09-13] MEDS: PANTOPRAZOLE SODIUM 40 MG VIAL IVP SCH (07:41)
[2016-09-13] MEDS: POTASSIUM BICARBONATE 25 MEQ EFFERVESCENT TAB PO SCH (07:45)
[2016-09-13] MEDS: BREO ELLIPTA PO SCH (07:46)
[2016-09-13 08:00] VITALS: BP 148/78; PULSE 79; RESP 18; TEMP 97.7; O2SAT 95
--- NOTE | 2016-09-13 09:47 | HHI.PR ---
Subjective Remarks Passing flatus. No stools. Remains distended. No N or V. Objective Vital Signs Date Time Temp Pulse Resp B/P Pulse Ox O2 Delivery O2 Flow Rate FiO2 09/13/16 08:38 18 09/13/16 08:00 97.7 79 18 148/78 95 09/13/16 00:00 97.2 82 20 177/97 98 09/12/16 20:00 96.7 80 20 168/87 100 09/12/16 16:00 97.7 72 19 134/66 98 09/12/16 12:00 97.8 79 19 143/69 97 I/O 09/12/16 09/12/16 09/12/16 09/13/16 09/13/16 09/13/16 07:00 15:00 23:00 07:00 15:00 23:00 Intake Total 240 ml 600 ml 480 ml 0 ml 120 ml Output Total 700 ml Balance 240 ml -100 ml 480 ml 0 ml 120 ml Intake Oral 240 ml 600 ml 480 ml 0 ml 120 ml Output Urine Total 700 ml # Voids 2 2 2 # Bowel Movements 1 Result Diagram: 09/09/1651809/09/16518 Objective Remarks Abd: round,moderate distention. Pain around stoma closure sit. Red about 1.5-2 cm around lateral corner. Will watch Assessment and Plan Assessment and Plan Stable. Still with mild post op Ileus. Plan possible D/C tomorrow. Encouraged more ambulation. Discussed Path. She is anxious about an ovarian cancer or metastatic disease,but report seems benign to me. I told her to discuss with Dr Pierson. Vasyl Simpson MD Sep 13, 2016 09:47
[2016-09-13 12:00] VITALS: BP 145/64; PULSE 76; RESP 20; TEMP 97.5; O2SAT 97
[2016-09-13 16:00] VITALS: BP 148/72; PULSE 100; RESP 19; TEMP 99.2; O2SAT 97
[2016-09-13] MEDS: SODIUM CHLORIDE 0.9% FLUSH 5 ML FLUSH IVF PRN (16:02)
[2016-09-13 20:00] VITALS: BP 142/82; PULSE 81; RESP 17; TEMP 98.9; O2SAT 96
[2016-09-13] MEDS: amLODIPine BESYLATE 5 MG TAB PO SCH (20:35)
[2016-09-14] VITALS: BP 130/67; PULSE 73; RESP 17; TEMP 98.4; O2SAT 96
[2016-09-14] MEDS: diphenhydrAMINE HCL 50 MG/ML VIAL IV PRN ×2 (00:27→06:17)
[2016-09-14] MEDS: oxyCODONE/ACETAMINOPHEN 5 MG/325 MG TAB PO PRN ×2 (00:28→06:17)
[2016-09-14] MEDS: FUROSEMIDE 40 MG/4 ML VIAL IV SCH (01:50)
[2016-09-14] MEDS: LEVOTHYROXINE SODIUM 125 MCG TAB PO SCH (07:52)
[2016-09-14] MEDS: SODIUM CHLORIDE 0.9% FLUSH 5 ML FLUSH IVF SCH (07:53)
[2016-09-14] MEDS: PANTOPRAZOLE SODIUM 40 MG VIAL IVP SCH (07:53)
[2016-09-14] MEDS: HEPARIN SODIUM - SQ 10,000 UNITS/ML VIAL SQ SCH (07:53)
[2016-09-14] MEDS: POTASSIUM BICARBONATE 25 MEQ EFFERVESCENT TAB PO SCH (07:54)
[2016-09-14] MEDS: BREO ELLIPTA PO SCH (07:54)
[2016-09-14 08:05] VITALS: BP 125/60; PULSE 69; RESP 18; TEMP 98.2; O2SAT 96
--- NOTE | 2016-09-14 10:01 | HHI.DCPOC ---
Discharge Care Plan Diagnosis: (1) Hx of colectomy Your Health Problems Are: Incision/Drains Appetite Changes Irregular Bowel Function Exercise Tolerance Goals to Promote Your Health * To prevent worsening of your condition and complications * To maintain your health at the optimal level Directions to Meet Your Goals Take your medications as prescribed Follow your dietary instruction Follow activity as directed Keep your appointments as scheduled Take your immunizations and boosters as scheduled If your symptoms worsen call your PCP, if no PCP go to Urgent Care Center or Emergency Room Smoking is Dangerous to Your Health. Avoid second hand smoke Call the 24-hour hour crisis hotline for domestic abuse at Vasyl Simpson MD Sep 14, 2016 10:01
--- NOTE | 2016-09-14 10:06 | HHI.PR ---
Subjective Remarks Passing flatus. No stools. Much softer. No N or V. Still using pain meds. Objective Vital Signs Date Time Temp Pulse Resp B/P Pulse Ox O2 Delivery O2 Flow Rate FiO2 09/14/16 08:05 98.2 69 18 125/60 96 09/14/16 07:17 18 09/14/16 00:00 98.4 73 17 130/67 96 09/13/16 20:00 98.9 81 17 142/82 96 09/13/16 16:00 99.2 100 19 148/72 97 09/13/16 12:00 97.5 76 20 145/64 97 I/O 09/13/16 09/13/16 09/13/16 09/14/16 09/14/16 09/14/16 07:00 15:00 23:00 07:00 15:00 23:00 Intake Total 0 ml 1080 ml 240 ml 240 ml 120 ml Output Total 700 ml Balance 0 ml 380 ml 240 ml 240 ml 120 ml Intake Oral 0 ml 1080 ml 240 ml 240 ml 120 ml IV Total 0 ml Output Urine Total 700 ml # Voids 2 1 2 # Bowel Movements 0 Objective Remarks Abd: Softer,minimal distention. Pain around stoma closure site. Redness nearly gone. Assessment and Plan Assessment and Plan Stable. Prior stools none last 2 days but flatus Plan: D/C today. Gave her copy of path report Vasyl Simpson MD Sep 14, 2016 10:06
--- NOTE | 2016-12-07 21:31 | MD ---
cc: BRENDAN BURROUGHS M.D. ADMISSION DATE: 09/05/2016 DISCHARGE DATE: 09/14/2016 ADMISSION DIAGNOSIS 1. History of stercoral ulcer status post surgery. 2. COPD. 3. Hypertension. 4. Cerebrovascular disease status post TIA. 5. Hypertension. DISCHARGE DIAGNOSIS 1. History of stercoral ulcer status post surgery. 2. COPD. 3. Hypertension. 4. Cerebrovascular disease status post TIA. 5. Hypertension. PROCEDURES PERFORMED: 1. Robotic / laparoscopic extensive lysis of adhesions. 2. Robotic resection with reanastomosis of Stuart's pouch. 3. Robotic appendectomy 4. Robotic bilateral salpingo-oophorectomy. HOSPITAL COURSE: The patient is a 76-year-old female who is several months out from emergency resection with colostomy and Stuart's pouch for a perforated stercoral ulcer. At that time, she was also noted to have an adnexal mass which was addressed during this hospitalization. She was admitted to the hospital on September 05, 2016 after an outpatient bowel prep, where she underwent the above-named procedures. Postoperatively the patient did fairly well, although she did have a mild postoperative ileus. She eventually had full return of bowel and bladder function and was discharged to home with instructions to follow-up with myself in the office. 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 Appendectomy showed foreign body cell and giant cell reaction but no evidence of acute appendicitis. MD ANTONIA Monge/MINDY /1:36 PM /9:26 PM SOL
== END 2016-09-14 12:11 | disposition home or self-care (01) | DRG 331 ==
LOC: HSDI 09-05 11:06 → N03B 09-06 02:52 → N07A 09-06 15:39
PROVIDERS: ADMIT Colon & Rectal Surgery; ATTEND Colon & Rectal Surgery
PROC: 0UNF4ZZ Release Cul-de-sac, Percutaneous Endoscopic Approach (ICD-10-PCS; 2016-09-05)
PROC: 0UN04ZZ Release Right Ovary, Percutaneous Endoscopic Approach (ICD-10-PCS; 2016-09-05)
PROC: 0DTJ4ZZ Resection of Appendix, Percutaneous Endoscopic Approach (ICD-10-PCS; 2016-09-05)
PROC: 8E0W4CZ Robotic Assisted Procedure of Trunk Region, Percutaneous Endoscopic Approach (ICD-10-PCS; 2016-09-05)
PROC: 0TJB8ZZ Inspection of Bladder, Via Natural or Artificial Opening Endoscopic (ICD-10-PCS; 2016-09-05)
PROC: 0T9780Z Drainage of Left Ureter with Drainage Device, Via Natural or Artificial Opening Endoscopic (ICD-10-PCS; 2016-09-05)
PROC: 0T9680Z Drainage of Right Ureter with Drainage Device, Via Natural or Artificial Opening Endoscopic (ICD-10-PCS; 2016-09-05)
PROC: 0DBN4ZZ Excision of Sigmoid Colon, Percutaneous Endoscopic Approach (ICD-10-PCS; principal; 2016-09-05 18:35)
PROC: 0UT74ZZ Resection of Bilateral Fallopian Tubes, Percutaneous Endoscopic Approach (ICD-10-PCS; 2016-09-05 18:35)
PROC: 0UT24ZZ Resection of Bilateral Ovaries, Percutaneous Endoscopic Approach (ICD-10-PCS; 2016-09-05 18:35)
DX: Z43.3 Encounter for attention to colostomy (principal); D27.0 Benign neoplasm of right ovary; I10 Essential (primary) hypertension; K38.8 Other specified diseases of appendix; K43.5 Parastomal hernia without obstruction or gangrene; K66.0 Peritoneal adhesions (postprocedural) (postinfection); J45.909 Unspecified asthma, uncomplicated; E06.3 Autoimmune thyroiditis; Z85.3 Personal history of malignant neoplasm of breast; Z86.73 Personal history of transient ischemic attack (TIA), and cerebral infarction without residual deficits
CPT/HCPCS: 74020; 76937; 80048; 84155; 85025; 86850; 86900; 86901; 87641; 88304; 88305; 88307; 88311; 88331; 93005; 93971; 94150; C1769; C9113; J0131; J0690; J0780; J1200; J1644; J1885; J1940; J2250; J2270; J2405; J3010; J3480; J7040; J7120; J8501

== ENCOUNTER 2017-09-07 18:24 | Inpatient (IN) | payer MEDICARE ==
[~2017-09-07 18:24] MED LIST changes: -AMLO10 PO; -BENT20TA PO; -CEPH-460 PO; +COLA100C3 PO; -HYDR50TA15 PO; -METO10TA PO; -MIRA33504 PO; -OXYB5TAB10 PO; -REST15CA PO
[2017-09-07 18:46] VITALS: BP 113/67; PULSE 80; RESP 18; TEMP 97.1; O2SAT 96
--- NOTE | 2017-09-07 20:11 | RADRPT ---
EXAM DATE/TIME: 09/07/2017 19:20 [facility] COMPARISON: ABDOMEN FLAT & UPRIGHT, September 07, 2016, 10:46. INDICATIONS : Abdominal pain. MEDICAL HISTORY : Bowel obstructions. SURGICAL HISTORY : Colon resection. ENCOUNTER: Initial ACUITY: 3 days PAIN SCORE: 7/10 LOCATION: middle abdomen. FINDINGS: A single upright view of the upper abdomen demonstrates interval resolution of pneumoperitoneum. The visualized lower lungs are clear will stop there are a few air-fluid levels in small bowel loops in the right hypogastric region measuring up to 3.5 cm in diameter. Some stool is seen in the left colo n. CONCLUSION: A few air-fluid levels in mildly dilated loops of small bowel right epigastric region. Angel Durán MD on September 07, 2017 at 20:08 Board Certified Radiologist. This report was verified electronically.
[2017-09-07 21:43] LABS: BILIRUBIN, URINE NEG (NEG); BLOOD, URINE NEG (NEG); GLUCOSE,URINE NEG (NEG); HYALINE CAST, URINE 43 /lpf (RARE); KETONE, URINE 40 mg/dL (NEG); MUCUS URINE FEW /lpf (OCC); NITRITE,URINE NEG (NEG); PH, URINE 5.5 (5.0-8.5); URINE COLOR YELLOW (YELLW/STRAW); URINE LEUKOCYTE ESTERASE NEG (NEG)
[2017-09-07 21:45] LABS: AUTOMATED NEUTROPHIL # 8.3 TH/MM3 (1.8-7.7); BASOPHIL % 0.4 % (0.0-2.0); EOSINOPHIL # 0.1 TH/MM3 (0-0.4); HEMATOCRIT 40.8 % (35.0-46.0); LYMPH % 7.2 % (9.0-44.0); LYMPHOCYTE # 0.7 TH/MM3 (1.0-4.8); MEAN CELL VOLUME 89.6 FL (80.0-100.0); MEAN CORPUSCULAR HEMOGLOBIN 30.6 PG (27.0-34.0); MEAN CORPUSCULAR HGB CONC 34.2 % (32.0-36.0); MEAN PLATELET VOLUME 8.7 FL (7.0-11.0); MONO % 8.6 % (0.0-8.0); MONOCYTE # 0.9 TH/MM3 (0-0.9); NEUT % 82.8 % (16.0-70.0); PLATELET COUNT 314 TH/MM3 (150-450); RED BLOOD COUNT 4.56 MIL/MM3 (4.00-5.30); RED CELL DISTRIBUTION WIDTH 12.6 % (11.6-17.2); WHITE BLOOD COUNT 10.1 TH/MM3 (4.0-11.0)
[2017-09-07 21:46] LABS: INTERNATIONAL NORMALIZED RATIO 1.1 RATIO; PROTHROMBIN TIME - PATIENT 11.4 SEC (9.8-11.6)
[2017-09-07 21:48] VITALS: BP 196/80; PULSE 73; RESP 18; O2SAT 98
[2017-09-07 21:58] LABS: ALBUMIN 3.8 GM/DL (3.4-5.0); AST (GOT) 23 U/L (15-37); BICARBONATE 22.9 MEQ/L (21.0-32.0); BLOOD UREA NITROGEN 17 MG/DL (7-18); CALCIUM 9.5 MG/DL (8.5-10.1); CHLORIDE 87 MEQ/L (98-107); CREATININE 0.72 MG/DL (0.50-1.00); GLOMERULAR FILTRATION RATE 79 ML/MIN (>89); GLUCOSE,RANDOM 65 MG/DL (74-106); SODIUM (NA) 126 MEQ/L (136-145)
[2017-09-07 21:59] LABS: ALT (GPT) 18 U/L (10-53)
[2017-09-07 22:01] LABS: ALKALINE PHOSPHATASE 83 U/L (45-117); TOTAL PROTEIN 7.3 GM/DL (6.4-8.2)
[2017-09-07] MEDS ORDERED: SODIUM CHLOR 0.9% 1000 ML INJ 1,000 ML IV SCH (22:21)
--- NOTE | 2017-09-07 22:24 | PD ---
HPI Chief Complaint: Abdominal Pain Time Seen by Provider: 22:12 Travel History International Travel<30 days: No Contact w/Intl Traveler<30days: No Traveled to known affect area: No History of Present Illness HPI 77-year-old female with PMH of chronic constipation, bowel obstruction presents to the ED for evaluation of 3 day history of nausea, vomiting, abdominal pain, abdominal bloating and constipation. Pain is diffuse, waxing and waning, maximally 10. No alleviating or exacerbating factors reported. Patient endorses chills. She denies fevers. She denies hematemesis. She endorses passing scant gas from below. She denies shortness of breath, cough, test pain , palpitations, dysuria. She states that she is on a bowel regimen and has been compliant. She states that she has a history of bowel resection secondary to obstruction by Dr. Marti. She spoke with Dr. Marti today who sent her to the emergency room. 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) Neurologic: Yes (TIA 08/2014) Psychiatric: Yes (ANXIETY) Reproductive: Yes (r ovary enlarged) Respiratory: Yes (ASTHMA) Thyroid Disease: Yes (hoshimotos) Tetanus Vaccination: < 5 Years Influenza Vaccination: No Past Surgical History Abdominal Surgery: Yes (colostomy, MASS REMOVAL) AICD: No Body Medical Devices: n/a Cardiac Surgery: No Ear Surgery: No Endocrine Surgery: No Eye Surgery: No Genitourinary Surgery: No Gynecologic Surgery: No Hysterectomy: No Joint Replacement: No Oral Surgery: No Pacemaker: No Thoracic Surgery: Yes (left breast lumpectomy/nodes removed dt cancer) Other Surgery: Yes (L lumpectomy; bilat foot) Social History Alcohol Use: No Tobacco Use: No Substance Use: No Allergies-Medications (Allergen,Severity, Reaction): Coded Allergies: No Known Allergies (Unverified , 09/05/16) Reported Meds & Prescriptions Reported Meds & Active Scripts Active Ativan (Lorazepam) 0.5 Mg Tab 0.5 Mg PO Q12H PRN Reported Miralax Powder (Polyethylene Glycol 3350 Powder) 17 Gm Powd 17 Gm PO DAILY Mix and dissolve one measuring cap-ful (17 grams) in water or juice. Proair Hfa 8.5 GM Inh (Albuterol Sulfate) 90 Mcg/Act Aer 2 Puff INH Q4-6H PRN 108 mcg/actuation Breo Ellipta Inh (Fluticasone/Vilanterol) 200-25 Mcg/Act Inh 1 Puff INH DAILY Use daily at the same time. Norvasc (Amlodipine Besylate) 5 Mg Tab 5 Mg PO HS Synthroid (Levothyroxine Sodium) 125 Mcg Tab 0.6 Mcg PO DAILY Review of Systems Except as stated in HPI: all other systems reviewed are Neg Physical Exam Narrative GENERAL: Well-nourished, well-developed white female in no acute distress. SKIN: Focused skin assessment warm/dry. HEAD: Normocephalic. EYES: No scleral icterus. No injection or drainage. NECK: Supple, trachea midline. No JVD or lymphadenopathy. CARDIOVASCULAR: Regular rate and rhythm without murmurs, gallops, or rubs. RESPIRATORY: Breath sounds clear and equal bilaterally. No accessory muscle use. GASTROINTESTINAL: Abdomen soft,mildly distended, diffusely tender. Hypoactive bowel sounds. MUSCULOSKELETAL: No cyanosis, or edema. BACK: Nontender without obvious deformity. No CVA tenderness. Data Data Last Documented VS Vital Signs Date Time Temp Pulse Resp B/P (MAP) Pulse Ox O2 Delivery O2 Flow Rate FiO2 09/07/17 21:49 18 09/07/17 21:48 73 196/80 (118) 98 09/07/17 18:46 97.1 Orders Orders Complete Blood Count With Diff (09/07/17 18:48) Comprehensive Metabolic Panel (09/07/17 18:48) Lipase (09/07/17 18:48) Prothrombin Time / Inr (Pt) (09/07/17 18:48) Act Partial Throm Time (Ptt) (09/07/17 18:48) Urinalysis - C+S If Indicated (09/07/17 18:48) Electrocardiogram (09/07/17 18:48) Abdomen, Upright Only (09/07/17 18:48) Ct Abd/Pel W Iv Contrast(Rout) (09/07/17 22:13) Iv Access Insert/Monitor (09/07/17 22:21) Ecg Monitoring (09/07/17 22:21) Oximetry (09/07/17 22:21) Morphine Inj (Morphine Inj) (09/07/17 22:30) Ondansetron Inj (Zofran Inj) (09/07/17 22:30) Sodium Chlor 0.9% 1000 Ml Inj (Ns 1000 M (09/07/17 22:21) Sodium Chloride 0.9% Flush (Ns Flush) (09/07/17 22:30) Iohexol 350 Inj (Omnipaque 350 Inj) (09/07/17 23:22) Insert Ng Tube (09/08/17 00:00) Consult Colorectal Surgery (09/08/17 ) Admit Order (Ed Use Only) (09/08/17 00:07) Labs Laboratory Tests Test 09/07/17 19:42 09/07/17 20:00 White Blood Count 10.1 TH/MM3 Red Blood Count 4.56 MIL/MM3 Hemoglobin 14.0 GM/DL Hematocrit 40.8 % Mean Corpuscular Volume 89.6 FL Mean Corpuscular Hemoglobin 30.6 PG Mean Corpuscular Hemoglobin Concent 34.2 % Red Cell Distribution Width 12.6 % Platelet Count 314 TH/MM3 Mean Platelet Volume 8.7 FL Neutrophils (%) (Auto) 82.8 % Lymphocytes (%) (Auto) 7.2 % Monocytes (%) (Auto) 8.6 % Eosinophils (%) (Auto) 1.0 % Basophils (%) (Auto) 0.4 % Neutrophils # (Auto) 8.3 TH/MM3 Lymphocytes # (Auto) 0.7 TH/MM3 Monocytes # (Auto) 0.9 TH/MM3 Eosinophils # (Auto) 0.1 TH/MM3 Basophils # (Auto) 0.0 TH/MM3 CBC Comment DIFF FINAL Differential Comment Prothrombin Time 11.4 SEC Prothromb Time International Ratio 1.1 RATIO Activated Partial Thromboplast Time 25.0 SEC Blood Urea Nitrogen 17 MG/DL Creatinine 0.72 MG/DL Random Glucose 65 MG/DL Total Protein 7.3 GM/DL Albumin 3.8 GM/DL Calcium Level 9.5 MG/DL Alkaline Phosphatase 83 U/L Aspartate Amino Transf (AST/SGOT) 23 U/L Alanine Aminotransferase (ALT/SGPT) 18 U/L Total Bilirubin 1.0 MG/DL Sodium Level 126 MEQ/L Potassium Level 3.2 MEQ/L Chloride Level 87 MEQ/L Carbon Dioxide Level 22.9 MEQ/L Anion Gap 16 MEQ/L Estimat Glomerular Filtration Rate 79 ML/MIN Lipase 52 U/L Urine Color YELLOW Urine Turbidity CLEAR Urine pH 5.5 Urine Specific Bath 1.017 Urine Protein NEG mg/dL Urine Glucose (UA) NEG mg/dL Urine Ketones 40 mg/dL Urine Occult Blood NEG Urine Nitrite NEG Urine Bilirubin NEG Urine Urobilinogen LESS THAN 2.0 MG/DL Urine Leukocyte Esterase NEG Urine RBC 1 /hpf Urine WBC 1 /hpf Urine Hyaline Casts 43 /lpf Urine Mucus FEW /lpf Microscopic Urinalysis Comment CULT NOT INDICATED MDM Medical Decision Making Medical Screen Exam Complete: Yes Emergency Medical Condition: Yes Differential Diagnosis Bowel obstruction versus constipation versus gastroenteritis ileus versus versus colitis versus other Narrative Course 77-year-old female with PMH of chronic constipation, bowel obstruction presents to the ED for evaluation of 3 day history of nausea, vomiting, abdominal pain, abdominal bloating and constipation. She endorses passing scant gas from below. She states that she is on a bowel regimen and has been compliant. She states that she has a history of bowel resection secondary to obstruction by Dr. Marti. She spoke with Dr. Marti office today who sent her to the emergency room. Patient's afebrile, pulse 80, BP 113/67 on presentation. On exam this is a white female in no acute distress. Abdomen is mildly distended and tender diffusely, worse in the right lower quadrant. Hypoactive bowel sounds noted. Patient was administered 1 L normal saline, 4 mg Zofran, 4 mg morphine IV. CBC & BMP Diagram 09/07/17 19:42 Total Protein 7.3, Albumin 3.8, Calcium Level 9.5, Alkaline Phosphatase 83, Aspartate Amino Transf (AST/SGOT) 23, Alanine Aminotransferase (ALT/SGPT) 18, Total Bilirubin 1.0 Abdominal x-ray: A few air-fluid levels and mildly dilated loops of small bowel right epigastric region. Abdomen and pelvis CT: Findings are suspicious for small bowel obstruction with multiple dilated loops of small bowel in the right abdomen containing air fluid levels. Distended gallbladder out gallstones, unchanged from prior CT scan in 2016. I spoke with Dr. Marti, colorectal surgeon, who recommends NG tube and admission to medicine. Patient is agreeable to this plan. NG tube was ordered. I spoke with Dr. Hill who agrees to accept the patient to the medicine service. Please see medicine and colorectal surgery notes for disposition. Joy Mancilla Sep 07, 2017 22:24
[2017-09-07] MEDS ORDERED: SODIUM CHLORIDE 0.9% FLUSH 10 ML FLUSH IV FLUSH PRN (22:30)
[2017-09-07] MEDS ORDERED: MORPHINE SULFATE 4 MG/ML INJ IV PUSH ONE (22:30)
[2017-09-07] MEDS ORDERED: ONDANSETRON HCL 4 MG/2 ML VIAL IVP ONE (22:30)
[2017-09-07] MEDS ORDERED: IOHEXOL 350 MG/ML 10 ML VIAL (for RAD DIAG) IVCONTRAST ONE (23:22)
--- NOTE | 2017-09-07 23:35 | RADRPT ---
EXAM DATE/TIME: 09/07/2017 23:03 [facility] COMPARISON: ABDOMEN FLAT & UPRIGHT, September 07, 2016, 10:46. CT ABDOMEN & PELVIS W CONTRAST, May 21, 2016, 20 :52. INDICATIONS : Low abdomen pain past 3 days. IV CONTRAST: 70 cc Omnipaque 350 (iohexol) IV ORAL CONTRAST: No oral contrast ingested. RADIATION DOSE: 6.31 CTDIvol (mGy) MEDICAL HISTORY : Cardiovascular disease. Hypertension. Carcinoma, breast. SURGICAL HISTORY : Colostomy. Bowel perforation ENCOUNTER: Initial ACUITY: 3 days PAIN SCALE: 6/10 LOCATION: Bilateral abdomen TECHNIQUE: Volumetric scanning of the abdomen and pelvis was performed. Using automated exposure control and ad justment of the mA and/or kV according to patient size, radiation dose was kept as low as reasonably achievable to obtain optimal diagnostic quality images. DICOM format image data is available electro nically for review and comparison. FINDINGS: LOWER LUNGS: Mild bronchiectasis in the lower lateral right lung, unchanged from prior CT in 2016. No focal infil trates seen. No evidence of pleural effusion. LIVER: Homogeneous density without lesion. There is no dilation of the biliary tree. No calcified gallston es in a distended gallbladder. The gallbladder distention is similar to prior CT in 2016. SPLEEN: Normal size without lesion. PANCREAS: Within normal limits. KIDNEYS: Normal in size and shape. There is no mass, stone or hydronephrosis. Bilateral renal cysts measurin g up to 1.4 cm in size. ADRENAL GLANDS: Within normal limits. VASCULAR: There is no aortic aneurysm. BOWEL/MESENTERY: There are multiple dilated loops of small bowel in the right abdomen measuring up to 4.5 cm in thickn ess. There are multiple air-fluid levels as well. Small bowel loops in the left lower quadrant are not distended. Prominent amount of stool throughout the colon. Anastomosis suture in the rectum. N o evidence of free intraperitoneal gas. ABDOMINAL WALL: Discontinuity in the left rectus muscle with herniation of fat, presumably at site of prior colostomy . RETROPERITONEUM: There is no lymphadenopathy. BLADDER: No wall thickening or mass. REPRODUCTIVE: Retroverted uterus. No evidence of free fluid. INGUINAL: There is no lymphadenopathy or hernia. MUSCULOSKELETAL: Within normal limits for patient age. CONCLUSION: 1. Findings are suspicious for small bowel obstruction with multiple dilated loops of small bowel in the right abdomen containing air-fluid levels. 2. Distended gallbladder without gallstones, unchanged from prior CT scan in 2016. Angel Durán MD on September 07, 2017 at 23:26 Board Certified Radiologist. This report was verified electronically.
[2017-09-08] VITALS (11 sets, daily range): BP systolic 132–181; BP diastolic 60–77; PULSE 68–81; RESP 12–18; TEMP 96.7–98.1; O2SAT 94–100
[2017-09-08] MEDS ORDERED: SODIUM CHLOR 0.9% 1000 ML INJ 1,000 ML IV SCH (02:16)
[2017-09-08] MEDS ORDERED: MAGNESIUM HYDROXIDE SUSP 30 ML CUP PO PRN (02:30)
[2017-09-08] MEDS ORDERED: BISACODYL 10 MG SUPP RECTAL PRN (02:30)
[2017-09-08] MEDS ORDERED: SODIUM CHLORIDE 0.9% FLUSH 10 ML FLUSH IV FLUSH PRN (02:30)
[2017-09-08] MEDS ORDERED: NALOXONE HCL 0.4 MG/ML AMP IV PUSH PRN (02:30)
[2017-09-08] MEDS ORDERED: SENNOSIDES 8.6 MG TAB PO PRN (02:30)
[2017-09-08] MEDS ORDERED: LACTULOSE SYRUP 20 GM/30 ML CUP PO PRN (02:30)
[2017-09-08] MEDS ORDERED: MIRA3350 PO (02:40)
[2017-09-08] MEDS: MORPHINE SULFATE 2 MG/ML INJ IV PUSH PRN ×4 (07:09→21:45)
[2017-09-08] MEDS: ONDANSETRON HCL 4 MG/2 ML VIAL IVP PRN ×3 (07:09→21:44)
[2017-09-08] MEDS: SODIUM CHLORIDE 0.9% FLUSH 10 ML FLUSH IV FLUSH SCH ×2 (09:00→21:46)
[2017-09-08] MEDS: DOCUSATE SODIUM 50 MG/SENNA 8.6 MG TAB PO SCH ×2 (09:00→21:00)
[2017-09-08] MEDS ORDERED: SOD PHOSPHATE/SOD BIPHOSPHATE (ADULT) ENEMA 133ML RECTAL ONE (10:30)
[2017-09-08] MEDS ORDERED: D5-NS + KCL 20 MEQ INJ 1,000 ML IV SCH (10:45)
[2017-09-08] MEDS ORDERED: POTASSIUM CHLORIDE INJ 20 MEQ in DEXT 5%-NACL 0.9% 1000 ML INJ 1,000 ML IV SCH (10:45)
--- NOTE | 2017-09-08 10:49 | HHI.HP ---
[facility] Bernard Chavez MD Admission Diagnosis small bowel obstruction, hyponatremia, hypokalemia Diagnoses: Chief Complaint: Abdominal pain nausea vomiting Travel History International Travel<30 Days: No Contact w/Intl Traveler <30 Da: No Traveled to Known Affected Are: No History of Present Illness Patient is a very pleasant 77-year-old female with known history of hyperreactive airway disease, hypertension, Jeanmarie's thyroiditis with history of chronic constipation on a bowel regimen off Miralax twice a day and psyllium daily. In 2017, she actually had bilateral large bowel resection secondary to perforation due to constipation. She is doing well on this regimen goes once a day no melena or hematochezia however about 4 days prior to admission started having nausea vomiting lower abdominal discomfort. No bowel movement since then. But states passing some flatness. This patient with poor by mouth intake and have been unable to hold down any food with constant nausea. Persistence prompted consult to ER where on evaluation. Abdomen was distended an NG tube was placed which drained bilious material. Patient admitted for further evaluation and management. Review of Systems Constitutional: DENIES: Fever, Weight loss, Chills, Change in appetite Eyes: DENIES: Blurred vision, Double Vision Ears, nose, mouth, throat: DENIES: Tinnitus, Ear Pain, Epistaxis, Odynophagia Respiratory: DENIES: Cough, Hemoptysis, Sputum production, Shortness of breath Cardiovascular: DENIES: Chest pain, Palpitations, Dyspnea on Exertion, Lower Extremity Edema, Orthopnea Gastrointestinal: DENIES: Black stools, Bloody stools, Difficulty Swallowing, Anorexia Genitourinary: DENIES: Urgency, Hematuria, Vaginal discharge Musculoskeletal: DENIES: Joint pain, Stiffness Integumentary: DENIES: Pruritus Hematologic/lymphatic: DENIES: Bruising Immunologic/allergic: DENIES: Urticaria Neurologic: DENIES: Headache, Speech Problems, Tremor Psychiatric: DENIES: Suicidal Ideation, Homicidal Ideation Past Family Social History Past Medical History Hypertension History of hyperreactive airway disease History of Jeanmarie's thyroiditis History of TIA History of breast cancer status post left lumpectomy and radiation treatment. Past Surgical History Left lumpectomy left breast. Bowel resection of the large indistinct 2017 secondary to perforation secondary to chronic constipation. Reported Medications Alanna lax 17 g twice a day CAD psyllium tablespoon twice a Breo MDI Proventil metered-dose inhaler Synthroid 125 g half tab daily Norvasc 5 mg daily Allergies: Coded Allergies: No Known Allergies (Unverified , 09/05/16) Family History Noncontributory Social History Denies smoking alcohol or substance abuse Physical Exam Vital Signs Vital Signs Date Time Temp Pulse Resp B/P (MAP) Pulse Ox O2 Delivery O2 Flow Rate FiO2 09/08/17 10:13 98.1 73 12 140/62 (88) 98 Room Air 09/08/17 07:12 81 18 181/73 (109) 96 Room Air 09/08/17 06:29 98 Nasal Cannula 2.00 09/08/17 05:03 73 18 169/72 (104) 100 09/08/17 02:41 70 18 144/65 (91) 96 09/08/17 01:05 80 18 173/74 (107) 100 09/07/17 21:49 18 09/07/17 21:48 73 18 196/80 (118) 98 09/07/17 18:46 97.1 80 18 113/67 (82) 96 Physical Exam GENERAL: This is a well-nourished, well-developed patient, in no apparent distress. SKIN: No rashes HEAD: Atraumatic. Normocephalic. No temporal or scalp tenderness. EYES: Pupils equal round and reactive. Extraocular motions intact. No scleral icterus. No injection or drainage. ENT: Nose without bleeding, purulent drainage or septal hematoma. Throat without erythema, Airway patent. NECK: Trachea midline. No JVD or lymphadenopathy. Supple, nontender, no meningeal signs. CARDIOVASCULAR: Regular rate and rhythm without murmurs, gallops, or rubs. RESPIRATORY: Clear to auscultation. Breath sounds equal bilaterally. No wheezes , rales, or rhonchi. GASTROINTESTINAL: Abdomen- distended, soft few bowel sounds, + tenderness and guarding on palpation on right lower quadrant area MUSCULOSKELETAL: Extremities without clubbing, cyanosis, or edema. No joint tenderness, effusion, or edema noted. No calf tenderness. Negative Homans sign bilaterally. NEUROLOGICAL: Awake and alert. Cranial nerves II through XII intact. Motor and sensory grossly within normal limits. Five out of 5 muscle strength in all muscle groups. Normal speech. Laboratory Laboratory Tests Test 09/07/17 19:42 09/07/17 20:00 White Blood Count 10.1 Red Blood Count 4.56 Hemoglobin 14.0 Hematocrit 40.8 Mean Corpuscular Volume 89.6 Mean Corpuscular Hemoglobin 30.6 Mean Corpuscular Hemoglobin Concent 34.2 Red Cell Distribution Width 12.6 Platelet Count 314 Mean Platelet Volume 8.7 Neutrophils (%) (Auto) 82.8 Lymphocytes (%) (Auto) 7.2 Monocytes (%) (Auto) 8.6 Eosinophils (%) (Auto) 1.0 Basophils (%) (Auto) 0.4 Neutrophils # (Auto) 8.3 Lymphocytes # (Auto) 0.7 Monocytes # (Auto) 0.9 Eosinophils # (Auto) 0.1 Basophils # (Auto) 0.0 CBC Comment DIFF FINAL Differential Comment Prothrombin Time 11.4 Prothromb Time International Ratio 1.1 Activated Partial Thromboplast Time 25.0 Blood Urea Nitrogen 17 Creatinine 0.72 Random Glucose 65 Total Protein 7.3 Albumin 3.8 Calcium Level 9.5 Alkaline Phosphatase 83 Aspartate Amino Transf (AST/SGOT) 23 Alanine Aminotransferase (ALT/SGPT) 18 Total Bilirubin 1.0 Sodium Level 126 Potassium Level 3.2 Chloride Level 87 Carbon Dioxide Level 22.9 Anion Gap 16 Estimat Glomerular Filtration Rate 79 Lipase 52 Urine Color YELLOW Urine Turbidity CLEAR Urine pH 5.5 Urine Specific [place] 1.017 Urine Protein NEG Urine Glucose (UA) NEG Urine Ketones 40 Urine Occult Blood NEG Urine Nitrite NEG Urine Bilirubin NEG Urine Urobilinogen LESS THAN 2.0 Urine Leukocyte Esterase NEG Urine RBC 1 Urine WBC 1 Urine Hyaline Casts 43 Urine Mucus FEW Microscopic Urinalysis Comment CULT NOT INDICATED Result Diagram: 09/07/17194109/07/171941 Caprini VTE Risk Assessment Caprini VTE Risk Assessment: Mod/High Risk (score >= 2) Caprini Risk Assessment Model Point Value = 1 Point Value = 2 Point Value = 3 Point Value = 5 Age 41-60 Minor surgery BMI > 25 kg/m2 Swollen legs Varicose veins or History of unexplained or recurrent spontaneous Oral contraceptives or hormone replacement Sepsis (< 1 month) Serious lung disease, including pneumonia (< 1 month) Abnormal pulmonary function Acute myocardial infarction Congestive heart failure (< 1 month) History of inflammatory bowel disease Medical patient at bed rest Age 61-74 Arthroscopic surgery Major open surgery (> 45 min) Laparoscopic surgery (> 45 min) Malignancy Confined to bed (> 72 hours) Immobilizing plaster cast Central venous access Age >= 75 History of VTE Family history of VTE Factor V Leiden Prothrombin [id number] Lupus anticoagulant Anticardiolipin antibodies Elevated serum homocysteine Heparin-induced thrombocytopenia Other congenital or acquired thrombophilia Stroke (< 1 month) Elective arthroplasty Hip, pelvis, or leg fracture Acute spinal cord injury (< 1 month) Prophylaxis Regimen Total Risk Factor Score Risk Level Prophylaxis Regimen 0-1 Low Early ambulation 2 Moderate Order ONE of the following: *Sequential Compression Device (SCD) *Heparin 5000 units SQ BID 3-4 Higher Order ONE of the following medications: *Heparin 5000 units SQ TID *Enoxaparin/Lovenox 40 mg SQ daily (WT < 150 kg, CrCl > 30 mL/min) *Enoxaparin/Lovenox 30 mg SQ daily (WT < 150 kg, CrCl > 10-29 mL/min) *Enoxaparin/Lovenox 30 mg SQ BID (WT < 150 kg, CrCl > 30 mL/min) AND/OR *Sequential Compression Device (SCD) 5 or more Highest Order ONE of the following medications: *Heparin 5000 units SQ TID (Preferred with Epidurals) *Enoxaparin/Lovenox 40 mg SQ daily (WT < 150 kg, CrCl > 30 mL/min) *Enoxaparin/Lovenox 30 mg SQ daily (WT < 150 kg, CrCl > 10-29 mL/min) *Enoxaparin/Lovenox 30 mg SQ BID (WT < 150 kg, CrCl > 30 mL/min) AND *Sequential Compression Device (SCD) Assessment and Plan Assessment and Plan 77-year-old female presenting abdominal pain distention nausea vomiting Ileus vs Bowel obstruction secondary to chronic constipation. CT of the abdomen reviewed which showed stools. Patient known to Dr. Cates consulted. Keep NG tube for now. Continue IV fluids. Monitor output Electrolyte abnormality- hyponatremia/hypokalemia secondary to obstruction. Will recheck stat BMP now and replace Change IV fluid to normal saline with potassium History of hypertension. Monitor. IV Vasotec prn History of Jeanmarie's thyroiditis. Resume Synthroid when allowed by mouth. History of hyperreactive airway disease in remission. Continue MDIs. TEDs/SCDs. Heparin SQ q 12 for DVT prophylaxis Start H2 britton for GI protection. Physician Certification 2 Midnight Certification Type: Admission for Inpatient Services Order for Inpatient Services The services are ordered in accordance with Medicare regulations or non- Medicare payer requirements, as applicable. In the case of services not specified as inpatient-only, they are appropriately provided as inpatient services in accordance with the 2-midnight benchmark. Estimated LOS (days): 3 days is the estimated time the patient will need to remain in the hospital, assuming treatment plan goals are met and no additional complications. Post-Hospital Plan: Not yet determined Geovany Jim MD Sep 08, 2017 10:49
[2017-09-08] MEDS ORDERED: LORazepam 0.5 MG TAB PO PRN (11:00)
[2017-09-08 11:48] LABS: BICARBONATE 23.1 MEQ/L (21.0-32.0); CALCIUM 8.1 MG/DL (8.5-10.1); CREATININE 0.5 MG/DL (0.50-1.00)
--- NOTE | 2017-09-08 12:04 | MB ---
cc: Lizett Marti MD DATE OF CONSULT: 09/08/2017 CHIEF COMPLAINT: Small bowel obstruction. HISTORY OF PRESENT ILLNESS: The patient is a 77-year-old female who is about one year out from a colon perforation from a stercoral ulcer. She underwent a resection with Hernandez and subsequent reanastomosis. She began having nausea, vomiting and cramping abdominal pain on Thursday which progressed to the point where she came to the ER late last night. She has a regular bowel pattern, but she has not been passing much in the last 2 or 3 days as well. Of note, she was recently started on some Chela. She denies any shortness of breath, headaches, chills or fevers. PAST MEDICAL HISTORY: 1. Asthma. 2. History of breast cancer. 3. Hypercholesterolemia. 4. History of stroke. 5. Anxiety. PAST SURGICAL HISTORY: 1. Colectomy. 2. Reanastomosis. 3. Left breast lumpectomy. 4. Foot surgery. SOCIAL HISTORY: The patient denies tobacco or alcohol. ALLERGIES: NONE. MEDICATIONS: 1. Ativan 0.5 mg q. 12 hours as needed. 2. Colace 100 mg p.o. twice a day. 3. ProAir. 4. Breo Ellipta. 5. Norvasc. 6. Synthroid. REVIEW OF SYSTEMS: Negative for headache, chest pain, shortness of breath, difficulty breathing, difficulty with mood or mentation, difficulty with ambulation, melena or hematochezia. PHYSICAL EXAM: GENERAL: An elderly female who appears relatively comfortable. NEURO: Grossly intact. SKIN: Warm and dry. HEAD: Normocephalic, atraumatic. CARDIOVASCULAR: Regular rate. CHEST: Breathing is symmetric bilaterally and nonlabored. ABDOMEN: Soft, mildly distended. She is nontender to palpation. EXTREMITIES: Reveals no edema. LABORATORY WORK: Reveals a white count of 10.1, hemoglobin of 14.0 and platelets of 314. Chemistry from last night revealed a sodium of 126, potassium 3.2, chloride of 87, BUN 17, creatinine 0.72 and glucose of 65. Coags are normal and urinalysis shows no evidence of infection. CT scan, however, does show multiple air-fluid levels in the small bowel on the right side of the abdomen with decompressed bowel on the left side consistent with a small bowel obstruction. Also, the CT scan shows large amounts of stool in the colon. IMPRESSION: Small bowel obstruction. PLAN: Admit for close observation, NG tube decompression and correction of dehydration and electrolytes. Dr. Jim has already ordered repeat labs which I think is prudent. I will also give her some enemas and start her on a daily Dulcolax to try to see if we can clean out some of her colon. Hopefully we will not have to proceed with any surgery, but that will only become clear as time passes. MD ANTONIA Monge/JESSA/nicol , 10:26 AM , 10:48 AM
[2017-09-08] MEDS: FAMOTIDINE 20 MG/2 ML VIAL IV PUSH SCH ×2 (12:58→21:45)
[2017-09-08] MEDS ORDERED: PILL SPLITTER OTHER PRN (13:00)
[2017-09-08] MEDS: ALBUTEROL SULFATE 90 MCG/ACT HFA 8 GM INHALER INH SCH ×3 (13:36→21:57)
[2017-09-08] MEDS: FLUTICASONE 200 MCG/VILANTEROL 25 MCG INHALER INH SCH (13:36)
[2017-09-08] MEDS ORDERED: POTASSIUM CHLOR 10 MEQ PREMIX 100 ML IV SCH (14:00)
[2017-09-08] MEDS: POTASSIUM CHLORIDE INJ 30 MEQ in DEXT 5%-NACL 0.9% 1000 ML INJ 1,000 ML IV SCH ×2 (14:00→22:29)
[2017-09-08] MEDS: BISACODYL 10 MG SUPP RECTAL SCH (17:49)
[2017-09-08] MEDS: HEPARIN SODIUM - SQ 10,000 UNITS/ML VIAL SQ SCH (21:46)
[2017-09-09] VITALS: BP 159/70; PULSE 75; RESP 18; TEMP 98.1; O2SAT 94
[2017-09-09 04:00] VITALS: BP 172/76; PULSE 74; RESP 20; TEMP 97.5; O2SAT 93
[2017-09-09] MEDS: ENALAPRILAT 2.5 MG/2 ML VIAL IV PUSH PRN ×2 (05:20→23:28)
[2017-09-09] MEDS: LEVOTHYROXINE SODIUM 125 MCG TAB PO SCH (05:23)
[2017-09-09 05:25] LABS: AUTOMATED NEUTROPHIL # 2.6 TH/MM3 (1.8-7.7); BASOPHIL % 0.4 % (0.0-2.0); EOSINOPHIL # 0.1 TH/MM3 (0-0.4); EOSINOPHIL % 2.7 % (0.0-4.0); HEMATOCRIT 34.4 % (35.0-46.0); HEMOGLOBIN 11.7 GM/DL (11.6-15.3); LYMPH % 8.4 % (9.0-44.0); LYMPHOCYTE # 0.3 TH/MM3 (1.0-4.8); MEAN CELL VOLUME 89.5 FL (80.0-100.0); MEAN CORPUSCULAR HEMOGLOBIN 30.4 PG (27.0-34.0); MEAN CORPUSCULAR HGB CONC 33.9 % (32.0-36.0); MONO % 11.9 % (0.0-8.0); MONOCYTE # 0.4 TH/MM3 (0-0.9); NEUT % 76.6 % (16.0-70.0); PLATELET COUNT 218 TH/MM3 (150-450); RED BLOOD COUNT 3.84 MIL/MM3 (4.00-5.30); RED CELL DISTRIBUTION WIDTH 12.5 % (11.6-17.2); WHITE BLOOD COUNT 3.4 TH/MM3 (4.0-11.0)
[2017-09-09 05:53] LABS: BICARBONATE 24.8 MEQ/L (21.0-32.0); CREATININE 0.47 MG/DL (0.50-1.00)
[2017-09-09 08:00] VITALS: BP 150/67; PULSE 72; RESP 19; TEMP 97.8; O2SAT 92
[2017-09-09] MEDS: POTASSIUM CHLOR 10 MEQ PREMIX 100 ML IV SCH ×3 (08:00→10:00)
--- NOTE | 2017-09-09 08:18 | EKG ---
Date Performed: 09/07/2017 Time Performed: 19:30:30 PTAGE: 77 years EKG: ECTOPIC ATRIAL RHYTHM ABNORMAL RHYTHM ECG Compared to PREVIOUS TRACING , ectopic atrial rhythm has replaced Sinus rhythm and the ST-T abnormalities have improved. PREVIOUS TRACIN09/06/2016 00.47 DOCTOR: Bryce Lauren Interpretating Date/Time 09/09/2017 08:17:59
[2017-09-09] MEDS: POTASSIUM CHLORIDE INJ 30 MEQ in DEXT 5%-NACL 0.9% 1000 ML INJ 1,000 ML IV SCH (08:24)
[2017-09-09] MEDS: FAMOTIDINE 20 MG/2 ML VIAL IV PUSH SCH ×2 (08:25→22:48)
[2017-09-09] MEDS: SODIUM CHLORIDE 0.9% FLUSH 10 ML FLUSH IV FLUSH SCH ×2 (08:25→22:48)
[2017-09-09] MEDS: HEPARIN SODIUM - SQ 10,000 UNITS/ML VIAL SQ SCH ×2 (08:25→22:46)
[2017-09-09] MEDS: DOCUSATE SODIUM 50 MG/SENNA 8.6 MG TAB PO SCH ×2 (08:26→22:47)
[2017-09-09] MEDS: BISACODYL 10 MG SUPP RECTAL SCH (08:26)
--- NOTE | 2017-09-09 08:41 | HHI.PR ---
Subjective Remarks SBO up 4 times last night with bm, more comfortable Objective Vital Signs Date Time Temp Pulse Resp B/P (MAP) Pulse Ox O2 Delivery O2 Flow Rate FiO2 09/09/17 04:00 97.5 74 20 172/76 (108) 93 09/09/17 00:00 98.1 75 18 159/70 (99) 94 09/08/17 23:31 159/70 (99) 09/08/17 20:00 97.7 18 179/77 (111) 94 09/08/17 16:41 97.7 68 17 145/65 (91) 94 09/08/17 15:32 96.7 68 16 132/60 (84) 95 09/08/17 14:15 96.7 76 16 140/63 (88) 96 09/08/17 10:13 98.1 73 12 140/62 (88) 98 Room Air I/O 09/08/17 09/08/17 09/08/17 09/09/17 09/09/17 09/09/17 07:00 15:00 23:00 07:00 15:00 23:00 Intake Total 1000 ml 525 ml Output Total 150 ml 40 ml Balance 1000 ml -150 ml 485 ml Intake IV Total 1000 ml 525 ml Output Stool Total 150 ml Gastric Drainage Total 40 ml # Bowel Movements 1 Result Diagram: 09/09/17 0418 09/09/17 0418 Objective Remarks Abdomen softer, nontender Assessment and Plan Assessment and Plan Mobilize Appears to be resolving Continue NGT for now Lizett Marti MD Sep 09, 2017 08:41
[2017-09-09] MEDS: ALBUTEROL SULFATE 90 MCG/ACT HFA 8 GM INHALER INH SCH ×4 (09:47→22:48)
[2017-09-09] MEDS: FLUTICASONE 200 MCG/VILANTEROL 25 MCG INHALER INH SCH (09:47)
[2017-09-09] MEDS: MORPHINE SULFATE 2 MG/ML INJ IV PUSH PRN ×2 (10:38→22:59)
[2017-09-09 12:00] VITALS: BP 153/78; PULSE 71; RESP 18; TEMP 98.6; O2SAT 94
[2017-09-09] MEDS: ONDANSETRON HCL 4 MG/2 ML VIAL IVP PRN (12:44)
--- NOTE | 2017-09-09 14:11 | HHI.PR ---
Subjective Remarks feeling better had small BM Objective Vitals Vital Signs Date Time Temp Pulse Resp B/P (MAP) Pulse Ox O2 Delivery O2 Flow Rate FiO2 09/09/17 12:00 98.6 71 18 153/78 (103) 94 09/09/17 08:00 97.8 72 19 150/67 (94) 92 09/09/17 04:00 97.5 74 20 172/76 (108) 93 09/09/17 00:00 98.1 75 18 159/70 (99) 94 09/08/17 23:31 159/70 (99) 09/08/17 20:00 97.7 18 179/77 (111) 94 09/08/17 16:41 97.7 68 17 145/65 (91) 94 09/08/17 15:32 96.7 68 16 132/60 (84) 95 09/08/17 14:15 96.7 76 16 140/63 (88) 96 I/O 09/08/17 09/08/17 09/08/17 09/09/17 09/09/17 09/09/17 07:00 15:00 23:00 07:00 15:00 23:00 Intake Total 1000 ml 525 ml Output Total 150 ml 40 ml Balance 1000 ml -150 ml 485 ml Intake IV Total 1000 ml 525 ml Output Stool Total 150 ml Gastric Drainage Total 40 ml # Bowel Movements 1 Result Diagram: 09/09/17 0418 09/09/17 0418 Imaging Last Impressions Abdomen/Pelvis CT 09/07/17 2213 Signed Impressions: Service Date/Time: Thursday, September 07, 2017 23:03 - CONCLUSION: 1. Findings are suspicious for small bowel obstruction with multiple dilated loops of small bowel in the right abdomen containing air-fluid levels. 2. Distended gallbladder without gallstones, unchanged from prior CT scan in 2016. Angel Durán MD Abdomen X-Ray 09/07/17 1842 Signed Impressions: Service Date/Time: Thursday, September 07, 2017 19:20 - CONCLUSION: A few air-fluid levels in mildly dilated loops of small bowel right epigastric region. Angel Durán MD Objective Remarks awake and alert no rales regular rhyhtm abdomen soft, nontender, slightly distended, soft extremiteis no edema A/P Assessment and Plan 77-year-old female presenting abdominal pain distention nausea vomiting Ileus vs Bowel obstruction secondary to chronic constipation. + stools Continue NGT continue NPO IVF hyponatremia- improved /hypokalemia continue IVF with 40meg KCL KCL. give x 20 meq bolus- slow and diluted ff electrolytes History of hypertension. Monitor. IV Vasotec prn History of Jeanmarie's thyroiditis. Resume Synthroid when allowed by mouth. History of hyperreactive airway disease in remission. Continue MDIs. TEDs/SCDs. Heparin SQ q 12 for DVT prophylaxis H2 britton for GI protection. Patient up and ambulating Geovany Jim MD Sep 09, 2017 14:10
[2017-09-09] MEDS ORDERED: POTASSIUM CHLOR 20 MEQ IV ONE (14:30)
[2017-09-09] MEDS ORDERED: SODIUM CHLORID 0.9% IV ONE ×2 (15:30)
[2017-09-09] MEDS ORDERED: POTASSIUM CHLORIDE IV ONE (15:30)
[2017-09-09] MEDS ORDERED: POTASSIUM ACETATE IV ONE (15:30)
[2017-09-09] MEDS: D5-NS + KCL 40 MEQ INJ 1,000 ML IV SCH (15:48)
[2017-09-09 16:00] VITALS: BP 142/66; PULSE 70; RESP 17; TEMP 98.7; O2SAT 95
[2017-09-09 20:00] VITALS: BP 173/75; PULSE 70; RESP 18; TEMP 98.3; O2SAT 96
[2017-09-10] VITALS: BP 180/81; PULSE 68; RESP 18; TEMP 98.1; O2SAT 94
[2017-09-10] MEDS: ONDANSETRON HCL 4 MG/2 ML VIAL IVP PRN ×2 (01:08→11:51)
[2017-09-10] MEDS: D5-NS + KCL 40 MEQ INJ 1,000 ML IV SCH ×2 (03:12→13:38)
[2017-09-10 04:00] VITALS: BP 159/67; PULSE 64; RESP 20; TEMP 96.7; O2SAT 93
[2017-09-10] MEDS: LEVOTHYROXINE SODIUM 125 MCG TAB PO SCH (06:17)
[2017-09-10 06:42] LABS: CALCIUM 8.4 MG/DL (8.5-10.1); CREATININE 0.49 MG/DL (0.50-1.00)
[2017-09-10 08:00] VITALS: BP 182/76; PULSE 70; RESP 18; TEMP 96.6; O2SAT 93
[2017-09-10] MEDS: DOCUSATE SODIUM 50 MG/SENNA 8.6 MG TAB PO SCH ×2 (09:13→20:03)
[2017-09-10] MEDS: FAMOTIDINE 20 MG/2 ML VIAL IV PUSH SCH ×2 (09:14→20:04)
[2017-09-10] MEDS: HEPARIN SODIUM - SQ 10,000 UNITS/ML VIAL SQ SCH ×2 (09:14→20:04)
[2017-09-10] MEDS: FLUTICASONE 200 MCG/VILANTEROL 25 MCG INHALER INH SCH (09:15)
[2017-09-10] MEDS: BISACODYL 10 MG SUPP RECTAL SCH (09:15)
[2017-09-10] MEDS: SODIUM CHLORIDE 0.9% FLUSH 10 ML FLUSH IV FLUSH SCH ×2 (09:15→20:04)
[2017-09-10] MEDS: ALBUTEROL SULFATE 90 MCG/ACT HFA 8 GM INHALER INH SCH ×4 (09:15→20:05)
[2017-09-10] MEDS ORDERED: POTASSIUM CHLOR 20 MEQ IV ONE (09:45)
--- NOTE | 2017-09-10 09:48 | HHI.PR ---
Subjective Remarks feeling better, wanting to eat had a good BM this am, +flatus Objective Vitals Vital Signs Date Time Temp Pulse Resp B/P (MAP) Pulse Ox O2 Delivery O2 Flow Rate FiO2 09/10/17 08:00 96.6 70 18 182/76 (111) 93 09/10/17 04:00 96.7 64 20 159/67 (97) 93 09/10/17 00:00 98.1 68 18 180/81 (114) 94 09/09/17 20:00 98.3 70 18 173/75 (107) 96 09/09/17 16:00 98.7 70 17 142/66 (91) 95 09/09/17 12:00 98.6 71 18 153/78 (103) 94 I/O 09/09/17 09/09/17 09/09/17 09/10/17 09/10/17 09/10/17 07:00 15:00 23:00 07:00 15:00 23:00 Intake Total 525 ml 400 ml Output Total 40 ml 25 ml Balance 485 ml 375 ml Intake Oral 0 ml IV Total 525 ml 400 ml Gastric Drainage Total 40 ml 25 ml # Voids 3 # Bowel Movements 1 1 Result Diagram: 09/09/17 0418 09/10/17 0545 Imaging Last Impressions Abdomen/Pelvis CT 09/07/173 Signed Impressions: Service Date/Time: Thursday, September 07, 2017 23:03 - CONCLUSION: 1. Findings are suspicious for small bowel obstruction with multiple dilated loops of small bowel in the right abdomen containing air-fluid levels. 2. Distended gallbladder without gallstones, unchanged from prior CT scan in 2016. Angel Durán MD Abdomen X-Ray 09/07/17 [id number] Signed Impressions: Service Date/Time: Thursday, September 07, 2017 19:20 - CONCLUSION: A few air-fluid levels in mildly dilated loops of small bowel right epigastric region. Angel Durán MD Objective Remarks awake and alert NGT in place no rales regular rhythm abdomen softer, nontender, good bowel sounds extremities no edema A/P Assessment and Plan 77-year-old female presenting abdominal pain distention nausea vomiting Ileus vs Bowel obstruction secondary to chronic constipation. clinically improving + BM - good one clamp NGT try clears if tolerated clamping for few hours hyponatremia- improved /hypokalemia continue IVF with 40meg KCL give another KCL in 250 cc bolus ff electrolytes History of hypertension. Monitor. IV Vasotec prn History of Jeanmarie's thyroiditis. Resume Synthroid when allowed by mouth. History of hyperreactive airway disease in remission. Continue MDIs. TEDs/SCDs. Heparin SQ q 12 for DVT prophylaxis H2 britton for GI protection. Patient up and ambulating- did 2x already per patient Geovany Jim MD Sep 10, 2017 09:48
--- NOTE | 2017-09-10 10:03 | HHI.PR ---
Subjective Remarks SBO seems to be resolving unclear how many bowel movements Objective Vital Signs Date Time Temp Pulse Resp B/P (MAP) Pulse Ox O2 Delivery O2 Flow Rate FiO2 09/10/17 08:00 96.6 70 18 182/76 (111) 93 09/10/17 04:00 96.7 64 20 159/67 (97) 93 09/10/17 00:00 98.1 68 18 180/81 (114) 94 09/09/17 20:00 98.3 70 18 173/75 (107) 96 09/09/17 16:00 98.7 70 17 142/66 (91) 95 09/09/17 12:00 98.6 71 18 153/78 (103) 94 I/O 09/09/17 09/09/17 09/09/17 09/10/17 09/10/17 09/10/17 07:00 15:00 23:00 07:00 15:00 23:00 Intake Total 525 ml 400 ml Output Total 40 ml 25 ml Balance 485 ml 375 ml Intake Oral 0 ml IV Total 525 ml 400 ml Gastric Drainage Total 40 ml 25 ml # Voids 3 # Bowel Movements 1 1 Result Diagram: 09/09/17 0418 09/10/17 0545 Objective Remarks Abdomen softer, nontender Assessment and Plan Assessment and Plan Mobilize D/C NGT Try clears Enema, increase laxatives Lizett Marti MD Sep 10, 2017 10:03
[2017-09-10] MEDS ORDERED: SOD PHOSPHATE/SOD BIPHOSPHATE (ADULT) ENEMA 133ML RECTAL ONE (10:15)
[2017-09-10] MEDS ORDERED: POTASSIUM BICARBONATE 25 MEQ EFFERVESCENT TAB PO ONE (10:30)
[2017-09-10] MEDS: LACTULOSE SYRUP 20 GM/30 ML CUP PO SCH ×2 (11:50→20:03)
[2017-09-10 12:00] VITALS: BP 175/76; PULSE 70; RESP 16; TEMP 97.4; O2SAT 96
[2017-09-10 16:00] VITALS: BP 168/70; PULSE 71; RESP 16; TEMP 97.6; O2SAT 98
[2017-09-10 20:00] VITALS: BP 161/70; PULSE 77; RESP 17; TEMP 96.1; O2SAT 95
[2017-09-11] VITALS: BP 129/68; PULSE 68; RESP 17; TEMP 98.3; O2SAT 97
[2017-09-11] MEDS ORDERED: ACETAMINOPHEN 325 MG TAB PO PRN (00:15)
[2017-09-11] MEDS: D5-NS + KCL 40 MEQ INJ 1,000 ML IV SCH ×2 (00:20→13:40)
[2017-09-11] MEDS: LEVOTHYROXINE SODIUM 125 MCG TAB PO SCH (04:58)
[2017-09-11 05:37] LABS: BICARBONATE 28.6 MEQ/L (21.0-32.0); CREATININE 0.46 MG/DL (0.50-1.00)
[2017-09-11 08:00] VITALS: BP 143/68; PULSE 70; RESP 17; TEMP 95.8; O2SAT 96
--- NOTE | 2017-09-11 08:55 | HHI.PR ---
Subjective Remarks SBO Pt in radiology Per RN - multiple BM's overnight and yesterday Objective Vital Signs Date Time Temp Pulse Resp B/P (MAP) Pulse Ox O2 Delivery O2 Flow Rate FiO2 09/11/17 01:20 18 09/11/17 00:00 98.3 68 17 129/68 (88) 97 09/10/17 20:00 96.1 77 17 161/70 (100) 95 09/10/17 16:00 97.6 71 16 168/70 (102) 98 09/10/17 12:00 97.4 70 16 175/76 (109) 96 I/O 09/10/17 09/10/17 09/10/17 09/11/17 09/11/17 09/11/17 07:00 15:00 23:00 07:00 15:00 23:00 Intake Total 800 ml 460 ml 1240 ml Balance 800 ml 460 ml 1240 ml Intake Oral 460 ml 240 ml IV Total 800 ml 1000 ml # Voids 6 2 # Bowel Movements 3 1 Result Diagram: 09/09/17 0418 09/11/17 0415 Objective Remarks Patient not available Assessment and Plan Assessment and Plan Try regular diet If tolerates, could go home this afternoon Followup with myself in 3 weeks - continue laxative program Lizett Marti MD Sep 11, 2017 08:55
--- NOTE | 2017-09-11 09:34 | RADRPT ---
EXAM DATE/TIME: 09/11/2017 08:55 [facility] COMPARISON: CT ABDOMEN & PELVIS W CONTRAST, September 07, 2017, 23:03. ABDOMEN KUB ONLY, June 08, 2016, 5:51. INDICATIONS : Follow up small bowel obstruction. MEDICAL HISTORY : Hypercholesterolemia. Hypertension. Carcinoma, breast. Hashimotos thyroid disease. Transient ischemic attack. Asthma. Hammer toe. Buinion. Enlarged right ovary. Anxiety. Anemia. Hernia. SURGICAL HISTORY : Left breast lumpectomy. Colostomy. Bilateral foot surgery. ENCOUNTER: Subsequent ACUITY: 1 week PAIN SCORE: 3/10 LOCATION: abdomen FINDINGS: Lung base are clear. Scattered stool is present throughout the colon. Minimal small bowel gas is ev ident. There is minimal dilatation of small bowel the right side of the abdomen, improved in the int erval. CONCLUSION: Interval improvement as described above. Orion Ny MD FACR on September 11, 2017 at 9:30 Board Certified Radiologist. This report was verified electronically.
[2017-09-11] MEDS: FAMOTIDINE 20 MG/2 ML VIAL IV PUSH SCH (10:00)
[2017-09-11] MEDS: HEPARIN SODIUM - SQ 10,000 UNITS/ML VIAL SQ SCH (10:00)
[2017-09-11] MEDS: DOCUSATE SODIUM 50 MG/SENNA 8.6 MG TAB PO SCH (10:00)
[2017-09-11] MEDS: BISACODYL 10 MG SUPP RECTAL SCH (10:00)
[2017-09-11] MEDS: LACTULOSE SYRUP 20 GM/30 ML CUP PO SCH (10:00)
[2017-09-11] MEDS: ALBUTEROL SULFATE 90 MCG/ACT HFA 8 GM INHALER INH SCH ×2 (10:01→12:30)
[2017-09-11] MEDS: SODIUM CHLORIDE 0.9% FLUSH 10 ML FLUSH IV FLUSH SCH (10:01)
[2017-09-11] MEDS: FLUTICASONE 200 MCG/VILANTEROL 25 MCG INHALER INH SCH (10:01)
--- NOTE | 2017-09-11 11:10 | HHI.PR ---
Subjective Remarks feels good tolerated po several BM overnight- semi formed no abdominal pain Objective Vitals Vital Signs Date Time Temp Pulse Resp B/P (MAP) Pulse Ox O2 Delivery O2 Flow Rate FiO2 09/11/17 08:00 95.8 70 17 143/68 (93) 96 09/11/17 01:20 18 09/11/17 00:00 98.3 68 17 129/68 (88) 97 09/10/17 20:00 96.1 77 17 161/70 (100) 95 09/10/17 16:00 97.6 71 16 168/70 (102) 98 09/10/17 12:00 97.4 70 16 175/76 (109) 96 I/O 09/10/17 09/10/17 09/10/17 09/11/17 09/11/17 09/11/17 07:00 15:00 23:00 07:00 15:00 23:00 Intake Total 800 ml 460 ml 1240 ml Balance 800 ml 460 ml 1240 ml Intake Oral 460 ml 240 ml IV Total 800 ml 1000 ml # Voids 6 2 # Bowel Movements 3 1 Result Diagram: 09/09/17 0418 09/11/17 0415 Imaging Last Impressions Abdomen X-Ray 09/11/17 0600 Signed Impressions: Service Date/Time: Monday, September 11, 2017 08:55 - CONCLUSION: Interval improvement as described above. Orion Ny MD FACR Abdomen/Pelvis CT 09/07/17 [id number] Signed Impressions: Service Date/Time: Thursday, September 07, 2017 23:03 - CONCLUSION: 1. Findings are suspicious for small bowel obstruction with multiple dilated loops of small bowel in the right abdomen containing air-fluid levels. 2. Distended gallbladder without gallstones, unchanged from prior CT scan in 2016. Angel Durán MD Objective Remarks awake and alert no rales regular rhythm abdomen softer, nontender, good bowel sounds extremities no edema gait steady A/P Assessment and Plan 77-year-old female presenting abdominal pain distention nausea vomiting Ileus vs Bowel obstruction secondary to chronic constipation. Resolved + BMs toelrated po repeat Xray improved- reviewed hyponatremia- improved /hypokalemia KCL 40 meq po x 1 now home with po LCL: x 3 days- recheck BMP as OP c/o PCP- advise on sheri daily History of hypertension. History of Jeanmarie's thyroiditis. Resume Synthroid History of hyperreactive airway disease in remission. Continue MDIs. TEDs/SCDs. Heparin SQ q 12 for DVT prophylaxis H2 britton for GI protection. Patient up and ambulating- did 2x already per patient HOme today FF up with PCP with repeat BMP- Thursday Ff up with Dr. Alamo - 2 weeks Geovany Jim MD Sep 11, 2017 11:10
[2017-09-11] MEDS ORDERED: Lactulose Liq PO (11:13)
[2017-09-11] MEDS ORDERED: BISA10R RECTAL (11:16)
[2017-09-11] MEDS ORDERED: POTA10CA PO (11:18)
[2017-09-11 12:00] VITALS: BP 139/63; PULSE 78; RESP 17; TEMP 95.6; O2SAT 98
[2017-09-11] MEDS ORDERED: POTASSIUM CHLORIDE 10 MEQ CONTROLLED RELEASE TAB PO ONE (12:00)
--- NOTE | 2017-09-11 13:56 | HHI.DS ---
Discharge Summary Admission Date Sep 08, 2017 at 00:08 Discharge Date: Sep 11, 2017 Admitting Diagnosis small bowel obstruction, hyponatremia, hypokalemia (1) SBO (small bowel obstruction) ICD Code: K56.609 - Unspecified intestinal obstruction, unspecified as to partial versus complete obstruction Diagnosis: Principal Procedures none Brief History - From Admission Patient is a very pleasant 77-year-old female with known history of hyperreactive airway disease, hypertension, Jeanmarie's thyroiditis with history of chronic constipation on a bowel regimen off Miralax twice a day and psyllium daily. In 2016, she actually had bilateral large bowel resection secondary to perforation due to constipation. She is doing well on this regimen goes once a day no melena or hematochezia however about 4 days prior to admission started having nausea vomiting lower abdominal discomfort. No bowel movement since then. But states passing some flatness. This patient with poor by mouth intake and have been unable to hold down any food with constant nausea. Persistence prompted consult to ER where on evaluation. Abdomen was distended an NG tube was placed which drained bilious material. Patient admitted for further evaluation and management. CBC/BMP: 09/09/17 0418 09/11/17 0415 Significant Findings Laboratory Tests Test 09/09/17 04:18 09/10/17 05:45 09/11/17 04:15 White Blood Count 3.4 TH/MM3 (4.0-11.0) Red Blood Count 3.84 MIL/MM3 (4.00-5.30) Hematocrit 34.4 % (35.0-46.0) Neutrophils (%) (Auto) 76.6 % (16.0-70.0) Lymphocytes (%) (Auto) 8.4 % (9.0-44.0) Monocytes (%) (Auto) 11.9 % (0.0-8.0) Lymphocytes # (Auto) 0.3 TH/MM3 (1.0-4.8) Creatinine 0.47 MG/DL (0.50-1.00) 0.49 MG/DL (0.50-1.00) 0.46 MG/DL (0.50-1.00) Random Glucose 108 MG/DL (74-106) Calcium Level 8.0 MG/DL (8.5-10.1) 8.4 MG/DL (8.5-10.1) 8.0 MG/DL (8.5-10.1) Potassium Level 3.3 MEQ/L (3.5-5.1) 3.4 MEQ/L (3.5-5.1) 3.4 MEQ/L (3.5-5.1) Blood Urea Nitrogen 4 MG/DL (7-18) 1 MG/DL (7-18) Imaging Last Impressions Abdomen X-Ray 09/11/17 0600 Signed Impressions: Service Date/Time: Monday, September 11, 2017 08:55 - CONCLUSION: Interval improvement as described above. Orion Ny MD FACR Abdomen/Pelvis CT 09/07/17 2213 Signed Impressions: Service Date/Time: Thursday, September 07, 2017 23:03 - CONCLUSION: 1. Findings are suspicious for small bowel obstruction with multiple dilated loops of small bowel in the right abdomen containing air-fluid levels. 2. Distended gallbladder without gallstones, unchanged from prior CT scan in 2016. Angel Durán MD PE at Discharge awake and alert no rales regular rhythm abdomen softer, nontender, good bowel sounds extremities no edema gait steady Pt update on day of discharge tolerarting po well Had several BM- formed no pain Hospital Course 77-year-old female presenting abdominal pain distention nausea vomiting Small Bowel obstruction secondary to chronic constipation. Resolved + BMs toelrated po repeat Xray improved- reviewed hyponatremia- improved /hypokalemia KCL 40 meq po x 1 now home with po LCL: x 3 days- recheck BMP as OP c/o PCP- advise on sheri daily History of hypertension. History of Jeanmarie's thyroiditis. Resume Synthroid History of hyperreactive airway disease in remission. Continue MDIs. TEDs/SCDs. Heparin SQ q 12 for DVT prophylaxis H2 britton for GI protection. Patient up and ambulating- did 2x already per patient HOme today FF up with PCP with repeat BMP- Thursday Ff up with Dr. Alamo - 2 wee Pt Condition on Discharge: Stable Discharge Disposition: Discharge Home Discharge Time: <= 30 minutes Discharge Instructions DIET: Follow Instructions for: Heart Healthy Diet, High Fiber Diet Speech Therapy-Diet Recommends: Regular Activities you can perform: Weight Bearing as Dez Follow up Referrals: Colorectal Surgery - 3 Weeks with Lizett Marti MD New Orders: BASIC METABOLIC PROF - 09/14/17 New Medications: Potassium Chloride ER (Potassium Chloride ER) 10 Meq Cap 10 MEQ PO BID for Electrolyte Replacement for 5 Days, #10 CAP 0 Refills Bisacodyl Supp (Bisac-Evac Supp) 10 Mg Supp 10 MG RECTAL DAILY for cosnitpation for 10 Days, #10 SUPP 0 Refills [Lactulose Liq] () 30 ML SYRP 30 ML PO BID for cosntipation for 30 Days, #1 BOTTLE Continued Medications: Albuterol 8.5 GM Inh (Proair Hfa 8.5 GM Inh) 90 Mcg/Act Aer 2 PUFF INH Q4-6H PRN for SHORTNESS OF BREATH, #1 INHALER 0 Refills 108 mcg/actuation Amlodipine (Norvasc) 5 Mg Tab 5 MG PO HS for Blood Pressure Management, #30 TAB 0 Refills Fluticasone-Vilanterol Inh (Breo Ellipta Inh) 200-25 Mcg/Act Inh 1 PUFF INH DAILY, #1 INHALER 0 Refills Use daily at the same time. Levothyroxine (Synthroid) 125 Mcg Tab 0.6 MCG PO DAILY for Thyroid, #30 TAB 0 Refills Lorazepam (Ativan) 0.5 Mg Tab 0.5 MG PO Q12H PRN for ANXIETY, #15 TAB Polyethylene Glycol 3350 Powder (Miralax Powder) 17 Gm Powd 17 GM PO DAILY for Constipation, #1 CAN 0 Refills Mix and dissolve one measuring cap-ful (17 grams) in water or juice. Geovany Jim MD Sep 11, 2017 13:56
[2017-09-12] MEDS ORDERED: amLODIPine BESYLATE 5 MG TAB PO SCH (09:00)
== END 2017-09-11 17:27 | disposition home or self-care (01) | DRG 389 ==
LOC: NEPE 18:24 → NEDA 09-08 00:08 → NEDH 09-08 04:09 → N03B 09-08 15:54 → N07B 09-10 01:34
PROVIDERS: ADMIT Internal Medicine; ATTEND Internal Medicine
DX: K56.609 Unspecified intestinal obstruction, unspecified as to partial versus complete obstruction (principal); E87.1 Hypo-osmolality and hyponatremia; E86.0 Dehydration; I10 Essential (primary) hypertension; E78.00 Pure hypercholesterolemia, unspecified; E06.3 Autoimmune thyroiditis; J45.909 Unspecified asthma, uncomplicated; E87.6 Hypokalemia; F41.9 Anxiety disorder, unspecified; Z85.3 Personal history of malignant neoplasm of breast; Z86.73 Personal history of transient ischemic attack (TIA), and cerebral infarction without residual deficits; Z90.49 Acquired absence of other specified parts of digestive tract; Z92.3 Personal history of irradiation
CPT/HCPCS: 74018; 74177; 80048; 80053; 81001; 83690; 85025; 85610; 85730; 93005; J1644; J2270; J2405; J3480; J7030; J7040; J7042; Q9967